=== PATIENT | male | born 1980 | race American Indian/Alaskan Native ===

== ENCOUNTER 2017-03-11 23:36 | Emergency (ER) | payer SELFPAY ==
[2017-03-12] MEDS ORDERED: NACL 0.9% 1000 ML 1,000 ML IV ONE (00:01)
[2017-03-12 00:45] LABS: Basophils % (Auto) 0.5 % (0.0-1.8); Eosinophils % (Auto) 0.8 % (0.0-4.3); Hematocrit 42.5 % (35.5-45.6); Mean Corpuscular HGB Conc 33 % (32-34); Mean Corpuscular Hemoglobin 29 pg (28-32); Mean Corpuscular Volume 89 fl (84-94); Platelet Count 207 K/mm3 (140-440); Red Blood Count 4.77 M/mm3 (3.65-5.03); Red Cell Distribution Width 14.3 % (13.2-15.2); White Blood Count 8.8 K/mm3 (4.5-11.0)
[2017-03-12 00:58] LABS: BUN/Creatinine Ratio 21.11; Calcium 8.6 mg/dL (8.4-10.2); Chloride 95.2 mmol/L (98-107); Potassium 4.3 mmol/L (3.6-5.0)
[2017-03-12 01:42] LABS: Bilirubin,Urine NEG (Negative); Blood,Urine SM (Negative); Ketones,Urine NEG (Negative); Leukocyte Esterase,Urine NEG (Negative); Nitrite,Urine NEG (Negative); Urobilinogen,Urine < 2.0 mg/dL (<2.0)
[2017-03-12] MEDS ORDERED: NACL 0.9% 1000 ML 2,000 ML IV ONE (01:42)
[2017-03-12] MEDS ORDERED: BENTYL IM ONE (01:50)
[2017-03-12] MEDS ORDERED: PEPCID PO ONE (01:50)
[2017-03-12] MEDS ORDERED: ALUM-MAG HYDROX-SIMETH 200-200-20MG/5ML PO ONE (01:50)
[2017-03-12] MEDS ORDERED: CARAFATE PO ONE (01:50)
--- NOTE | 2017-03-12 01:52 | Emergency Department Report ---
ED General Adult HPI - General Chief complaint: Hyperglycemia Stated complaint: HIGH BLOOD PRESSURE Time Seen by Provider: 03/12/17 01:42 Source: patient, RN notes reviewed, old records reviewed Mode of arrival: Ambulatory Limitations: No Limitations - History of Present Illness Initial comments: This is a 36-year-old male. He is previously unknown to me. He is a past medical history of diabetes and hypertension. He is brought to the hospital by EMS for hyperglycemia. The patient reports his blood sugar was 564, and he gave himself 40 units of 70/30 insulin at home. He reports that he thinks his insulin was not working, because it was hot and warm. Patient denies dietary indiscretions. He denies headache, neck pain, abdominal pain, severe shortness of breath, testicular pain, irritative and obstructive urinary symptoms. He denies dietary indiscretions. On review of systems, the patient mid to central chest pressure. The pressure did not radiate to the back, arms or neck. There is no vomiting or diaphoresis. There is chronic shortness of breath, which is not new, worsening or different. There is no leg pain or leg swelling. No recent trips greater than 4 hours. No recent hospital admissions. The chest pressure has been intermittent for the past 3 days. No recent aspirin use. No recent cocaine use. -: Gradual Location: chest Severity scale (0 -10): 0 Quality: aching Consistency: intermittent Improves with: none Worsens with: none Associated Symptoms: chest pain - Related Data Home Medications Medication Instructions Recorded Confirmed Last Taken amLODIPine 5 mg PO DAILY 08/23/16 03/12/17 08/22/16 Previous Rx's Medication Instructions Recorded Last Taken Type Ibuprofen [Motrin 800 MG tab] 800 mg PO Q8HR PRN #20 tablet 08/23/16 Unknown Rx Allergies Allergy/AdvReac Type Severity Reaction Status Date / Time No Known Allergies Allergy Verified 08/24/14 19:05 ED Review of Systems ROS: Stated complaint: HIGH BLOOD PRESSURE Other details as noted in HPI Constitutional: denies: fever Eyes: denies: vision change ENT: denies: epistaxis Respiratory: denies: cough Cardiovascular: chest pain Gastrointestinal: denies: abdominal pain, nausea, vomiting Genitourinary: denies: dysuria Musculoskeletal: denies: back pain Skin: denies: lesions Neurological: weakness ED Past Medical Hx - Past Medical History Previous Medical History?: Yes Hx Hypertension: Yes Hx Diabetes: Yes - Surgical History Past Surgical History?: No - Social History Smoking Status: Current Every Day Smoker Substance Use Type: Prescribed - Medications Home Medications: Home Medications Medication Instructions Recorded Confirmed Last Taken Type Ibuprofen [Motrin 800 MG tab] 800 mg PO Q8HR PRN #20 tablet 08/23/16 03/12/17 Unknown Rx amLODIPine 5 mg PO DAILY 08/23/16 03/12/17 08/22/16 History ED Physical Exam - General Limitations: No Limitations General appearance: alert, in no apparent distress - Head Head exam: Present: atraumatic, normocephalic - Eye Eye exam: Present: normal appearance, EOMI. Absent: nystagmus - ENT ENT exam: Present: normal exam, normal orophraynx, mucous membranes moist, normal external ear exam - Neck Neck exam: Present: normal inspection, full ROM. Absent: tenderness, meningismus - Respiratory Respiratory exam: Present: normal lung sounds bilaterally. Absent: respiratory distress, wheezes, rales, rhonchi, stridor, chest wall tenderness, accessory muscle use, decreased breath sounds, prolonged expiratory - Cardiovascular Cardiovascular Exam: Present: regular rate, normal rhythm, normal heart sounds. Absent: bradycardia, tachycardia, irregular rhythm, systolic murmur, diastolic murmur, rubs, gallop - GI/Abdominal GI/Abdominal exam: Present: soft, normal bowel sounds. Absent: distended, tenderness, guarding, rebound, rigid, pulsatile mass - Rectal Rectal exam: Present: deferred - Extremities Exam Extremities exam: Present: normal inspection, full ROM, normal capillary refill. Absent: tenderness, pedal edema, joint swelling, calf tenderness - Back Exam Back exam: Present: normal inspection, full ROM. Absent: tenderness, CVA tenderness (R), CVA tenderness (L), muscle spasm, paraspinal tenderness, vertebral tenderness - Neurological Exam Neurological exam: Present: alert, oriented X3, normal gait, other (Extraocular movements intact. Tongue midline. No facial droop. Facial sensation intact to light touch in the V1, V2, V3 distribution bilaterally. 5 and 5 strength in 4 extremities.. Sensation is intact to light touch in 4 extremities.). Absent : motor sensory deficit - Psychiatric Psychiatric exam: Present: normal affect, normal mood - Skin Skin exam: Present: warm, dry, intact, normal color. Absent: rash ED Course Vital Signs 03/11/17 03/11/17 03/11/17 23:37 23:40 23:50 Temperature 98.3 F Pulse Rate 82 72 Respiratory 15 17 Rate Blood Pressure 152/99 131/86 Blood Pressure 152/99 [Right] O2 Sat by Pulse 97 98 97 Oximetry 03/11/17 03/11/17 03/12/17 23:52 23:56 00:00 Temperature Pulse Rate 74 88 77 Respiratory 18 18 Rate Blood Pressure 131/86 131/86 Blood Pressure [Right] O2 Sat by Pulse 97 98 Oximetry 03/12/17 03/12/17 03/12/17 00:10 00:20 00:30 Temperature Pulse Rate 63 78 66 Respiratory 18 17 17 Rate Blood Pressure 142/94 134/94 141/89 Blood Pressure [Right] O2 Sat by Pulse 98 97 97 Oximetry 03/12/17 03/12/17 03/12/17 00:40 00:50 01:00 Temperature Pulse Rate 71 54 L 63 Respiratory 18 16 14 Rate Blood Pressure 141/89 143/92 138/92 Blood Pressure [Right] O2 Sat by Pulse 99 99 98 Oximetry 03/12/17 03/12/17 03/12/17 01:06 01:10 01:15 Temperature Pulse Rate 65 68 Respiratory 20 16 18 Rate Blood Pressure 138/92 Blood Pressure 138/92 [Right] O2 Sat by Pulse 99 99 Oximetry 03/12/17 03/12/17 03/12/17 01:20 01:30 01:40 Temperature Pulse Rate 59 L 57 L 69 Respiratory 15 15 12 Rate Blood Pressure 138/81 150/92 150/92 Blood Pressure [Right] O2 Sat by Pulse 99 98 100 Oximetry 03/12/17 03/12/17 03/12/17 01:50 02:00 02:10 Temperature Pulse Rate 57 L 46 L 49 L Respiratory 13 17 16 Rate Blood Pressure 143/86 143/86 124/66 Blood Pressure [Right] O2 Sat by Pulse 99 98 97 Oximetry 03/12/17 03/12/17 03/12/17 02:20 02:30 03:00 Temperature Pulse Rate 53 L 58 L 47 L Respiratory 15 11 L 16 Rate Blood Pressure 136/85 136/85 120/76 Blood Pressure [Right] O2 Sat by Pulse 98 98 98 Oximetry 03/12/17 03:30 Temperature Pulse Rate 53 L Respiratory 11 L Rate Blood Pressure 129/83 Blood Pressure [Right] O2 Sat by Pulse 97 Oximetry ED Medical Decision Making - Lab Data Result diagrams: 03/12/17 00:11 03/12/17 04:24 Vital Signs 03/11/17 03/11/17 03/11/17 23:37 23:40 23:50 Temperature 98.3 F Pulse Rate 82 72 Respiratory 15 17 Rate Blood Pressure 152/99 131/86 Blood Pressure 152/99 [Right] O2 Sat by Pulse 97 98 97 Oximetry 03/11/17 03/11/17 03/12/17 23:52 23:56 00:00 Temperature Pulse Rate 74 88 77 Respiratory 18 18 Rate Blood Pressure 131/86 131/86 Blood Pressure [Right] O2 Sat by Pulse 97 98 Oximetry 03/12/17 03/12/17 03/12/17 00:10 00:20 00:30 Temperature Pulse Rate 63 78 66 Respiratory 18 17 17 Rate Blood Pressure 142/94 134/94 141/89 Blood Pressure [Right] O2 Sat by Pulse 98 97 97 Oximetry 03/12/17 03/12/17 03/12/17 00:40 00:50 01:00 Temperature Pulse Rate 71 54 L 63 Respiratory 18 16 14 Rate Blood Pressure 141/89 143/92 138/92 Blood Pressure [Right] O2 Sat by Pulse 99 99 98 Oximetry 03/12/17 03/12/17 03/12/17 01:06 01:10 01:15 Temperature Pulse Rate 65 68 Respiratory 20 16 18 Rate Blood Pressure 138/92 Blood Pressure 138/92 [Right] O2 Sat by Pulse 99 99 Oximetry 03/12/17 03/12/17 03/12/17 01:20 01:30 01:40 Temperature Pulse Rate 59 L 57 L 69 Respiratory 15 15 12 Rate Blood Pressure 138/81 150/92 150/92 Blood Pressure [Right] O2 Sat by Pulse 99 98 100 Oximetry 03/12/17 03/12/17 03/12/17 01:50 02:00 02:10 Temperature Pulse Rate 57 L 46 L 49 L Respiratory 13 17 16 Rate Blood Pressure 143/86 143/86 124/66 Blood Pressure [Right] O2 Sat by Pulse 99 98 97 Oximetry 03/12/17 03/12/17 03/12/17 02:20 02:30 03:00 Temperature Pulse Rate 53 L 58 L 47 L Respiratory 15 11 L 16 Rate Blood Pressure 136/85 136/85 120/76 Blood Pressure [Right] O2 Sat by Pulse 98 98 98 Oximetry 03/12/17 03:30 Temperature Pulse Rate 53 L Respiratory 11 L Rate Blood Pressure 129/83 Blood Pressure [Right] O2 Sat by Pulse 97 Oximetry Lab Results 03/11/17 03/12/17 03/12/17 Range/Units 23:45 00:11 00:11 WBC 8.8 (4.5-11.0) K/mm3 RBC 4.77 (3.65-5.03) M/mm3 Hgb 14.0 (11.8-15.2) gm/dl Hct 42.5 (35.5-45.6) % MCV 89 (84-94) fl MCH 29 (28-32) pg MCHC 33 (32-34) % RDW 14.3 (13.2-15.2) % Plt Count 207 (140-440) K/mm3 Lymph % (Auto) 24.8 (13.4-35.0) % [place] % (Auto) 5.4 (0.0-7.3) % Eos % (Auto) 0.8 (0.0-4.3) % Baso % (Auto) 0.5 (0.0-1.8) % Lymph # 2.2 (1.2-5.4) K/mm3 [place] # 0.5 (0.0-0.8) K/mm3 Eos # 0.1 (0.0-0.4) K/mm3 Baso # 0.0 (0.0-0.1) K/mm3 Seg Neutrophils % 68.5 (40.0-70.0) % Seg Neutrophils # 6.0 (1.8-7.7) K/mm3 VBG pH (7.320-7.420) Sodium 129 L (137-145) mmol/L Potassium 4.3 (3.6-5.0) mmol/L Chloride 95.2 L (98-107) mmol/L Carbon Dioxide 21 L (22-30) mmol/L Anion Gap 17 mmol/L BUN 38 H (9-20) mg/dL Creatinine 1.8 H (0.8-1.5) mg/dL Estimated GFR 52 ml/min BUN/Creatinine Ratio 21.11 % Glucose 594 H* (75-100) mg/dL POC Glucose 471 H (70-105) Calcium 8.6 (8.4-10.2) mg/dL Magnesium (1.7-2.3) mg/dL Troponin T (0.00-0.029) ng/mL Urine Color (Yellow) Urine Turbidity (Clear) Urine pH (5.0-7.0) Ur Specific [place] (1.003-1.030) Urine Protein (Negative) mg/dL Urine Glucose (UA) (Negative) mg/dL Urine Ketones (Negative) mg/dL Urine Blood (Negative) Urine Nitrite (Negative) Urine Bilirubin (Negative) Urine Urobilinogen (<2.0) mg/dL Ur Leukocyte Esterase (Negative) Urine WBC (Auto) (0.0-6.0) /HPF Urine RBC (Auto) (0.0-6.0) /HPF 03/12/17 03/12/17 03/12/17 Range/Units 00:11 00:11 01:07 WBC (4.5-11.0) K/mm3 RBC (3.65-5.03) M/mm3 Hgb (11.8-15.2) gm/dl Hct (35.5-45.6) % MCV (84-94) fl MCH (28-32) pg MCHC (32-34) % RDW (13.2-15.2) % Plt Count (140-440) K/mm3 Lymph % (Auto) (13.4-35.0) % [place] % (Auto) (0.0-7.3) % Eos % (Auto) (0.0-4.3) % Baso % (Auto) (0.0-1.8) % Lymph # (1.2-5.4) K/mm3 [place] # (0.0-0.8) K/mm3 Eos # (0.0-0.4) K/mm3 Baso # (0.0-0.1) K/mm3 Seg Neutrophils % (40.0-70.0) % Seg Neutrophils # (1.8-7.7) K/mm3 VBG pH 7.392 (7.320-7.420) Sodium (137-145) mmol/L Potassium (3.6-5.0) mmol/L Chloride (98-107) mmol/L Carbon Dioxide (22-30) mmol/L Anion Gap mmol/L BUN (9-20) mg/dL Creatinine (0.8-1.5) mg/dL Estimated GFR ml/min BUN/Creatinine Ratio % Glucose (75-100) mg/dL POC Glucose (70-105) Calcium (8.4-10.2) mg/dL Magnesium 2.10 (1.7-2.3) mg/dL Troponin T (0.00-0.029) ng/mL Urine Color Straw (Yellow) Urine Turbidity Clear (Clear) Urine pH 5.0 (5.0-7.0) Ur Specific [place] 1.022 (1.003-1.030) Urine Protein 100 mg/dl (Negative) mg/dL Urine Glucose (UA) >=500 (Negative) mg/dL Urine Ketones Neg (Negative) mg/dL Urine Blood Sm (Negative) Urine Nitrite Neg (Negative) Urine Bilirubin Neg (Negative) Urine Urobilinogen < 2.0 (<2.0) mg/dL Ur Leukocyte Esterase Neg (Negative) Urine WBC (Auto) 1.0 (0.0-6.0) /HPF Urine RBC (Auto) 4.0 (0.0-6.0) /HPF 03/12/17 03/12/17 03/12/17 Range/Units 01:10 02:38 04:24 WBC (4.5-11.0) K/mm3 RBC (3.65-5.03) M/mm3 Hgb (11.8-15.2) gm/dl Hct (35.5-45.6) % MCV (84-94) fl MCH (28-32) pg MCHC (32-34) % RDW (13.2-15.2) % Plt Count (140-440) K/mm3 Lymph % (Auto) (13.4-35.0) % [place] % (Auto) (0.0-7.3) % Eos % (Auto) (0.0-4.3) % Baso % (Auto) (0.0-1.8) % Lymph # (1.2-5.4) K/mm3 [place] # (0.0-0.8) K/mm3 Eos # (0.0-0.4) K/mm3 Baso # (0.0-0.1) K/mm3 Seg Neutrophils % (40.0-70.0) % Seg Neutrophils # (1.8-7.7) K/mm3 VBG pH (7.320-7.420) Sodium 138 D (137-145) mmol/L Potassium 3.7 (3.6-5.0) mmol/L Chloride 105.4 (98-107) mmol/L Carbon Dioxide 20 L (22-30) mmol/L Anion Gap 16 mmol/L BUN 34 H (9-20) mg/dL Creatinine 1.6 H (0.8-1.5) mg/dL Estimated GFR 59 ml/min BUN/Creatinine Ratio 21.25 % Glucose 172 H (75-100) mg/dL POC Glucose 474 H 420 H (70-105) Calcium 8.5 (8.4-10.2) mg/dL Magnesium (1.7-2.3) mg/dL Troponin T < 0.010 (0.00-0.029) ng/mL Urine Color (Yellow) Urine Turbidity (Clear) Urine pH (5.0-7.0) Ur Specific [place] (1.003-1.030) Urine Protein (Negative) mg/dL Urine Glucose (UA) (Negative) mg/dL Urine Ketones (Negative) mg/dL Urine Blood (Negative) Urine Nitrite (Negative) Urine Bilirubin (Negative) Urine Urobilinogen (<2.0) mg/dL Ur Leukocyte Esterase (Negative) Urine WBC (Auto) (0.0-6.0) /HPF Urine RBC (Auto) (0.0-6.0) /HPF 03/12/17 Range/Units 04:24 WBC (4.5-11.0) K/mm3 RBC (3.65-5.03) M/mm3 Hgb (11.8-15.2) gm/dl Hct (35.5-45.6) % MCV (84-94) fl MCH (28-32) pg MCHC (32-34) % RDW (13.2-15.2) % Plt Count (140-440) K/mm3 Lymph % (Auto) (13.4-35.0) % [place] % (Auto) (0.0-7.3) % Eos % (Auto) (0.0-4.3) % Baso % (Auto) (0.0-1.8) % Lymph # (1.2-5.4) K/mm3 [place] # (0.0-0.8) K/mm3 Eos # (0.0-0.4) K/mm3 Baso # (0.0-0.1) K/mm3 Seg Neutrophils % (40.0-70.0) % Seg Neutrophils # (1.8-7.7) K/mm3 VBG pH (7.320-7.420) Sodium (137-145) mmol/L Potassium (3.6-5.0) mmol/L Chloride (98-107) mmol/L Carbon Dioxide (22-30) mmol/L Anion Gap mmol/L BUN (9-20) mg/dL Creatinine (0.8-1.5) mg/dL Estimated GFR ml/min BUN/Creatinine Ratio % Glucose (75-100) mg/dL POC Glucose 158 H (70-105) Calcium (8.4-10.2) mg/dL Magnesium (1.7-2.3) mg/dL Troponin T (0.00-0.029) ng/mL Urine Color (Yellow) Urine Turbidity (Clear) Urine pH (5.0-7.0) Ur Specific [place] (1.003-1.030) Urine Protein (Negative) mg/dL Urine Glucose (UA) (Negative) mg/dL Urine Ketones (Negative) mg/dL Urine Blood (Negative) Urine Nitrite (Negative) Urine Bilirubin (Negative) Urine Urobilinogen (<2.0) mg/dL Ur Leukocyte Esterase (Negative) Urine WBC (Auto) (0.0-6.0) /HPF Urine RBC (Auto) (0.0-6.0) /HPF - EKG Data -: EKG Interpreted by Pa EKG shows normal: sinus rhythm - EKG Data 03/12/17 05:30 EKG #1 demonstrates normal bradycardia, 54 bpm, normal intervals, normal axis, not morphologically consistent with STEMI, this is unchanged when compared to prior EKG from 201303/12/17 05:40 EKG #2 demonstrates sinus bradycardia, 43 beats per minute, normal intervals, normal axis, not morphologically consistent with STEMI. - Radiology Data Radiology results: report reviewed, image reviewed X-ray of the chest is negative for acute disease - Medical Decision Making Differential diagnosis: Hyperglycemia, diabetic ketoacidosis, hyperosmolar state , chronic renal insufficiency, GERD, reflux, anxiety, pneumonia, acute coronary syndrome Assessment and plan: 36-year-old male with a primary complaint of hyperglycemia. He has chronic renal insufficiency; this has been present since July 2016. Laboratory studies were not consistent with anion gap acidosis, chest pain atypical, present for 3 days. Low risk by NIKO score, low risk by heart score, low risk by well's criteria, perc negative. Chest discomfort present for 3 days, therefore as per the [employer] clinical policy, myocardial infarction may be excluded with 1 set of troponins. The patient was observed in the ER for a prolonged period of time, he felt improved after symptomatic and supportive care, his renal insufficiency improved with IV fluids, and his hyperglycemia improved as well. EKG was unchanged 2, and unchanged from his prior EKG from 2013. The patient is suitable to follow up with an outpatient primary care doctor and flat drier. He will be discharged at this time. Return precautions are reviewed. X-ray not consistent with pneumonia. Critical care attestation.: If time is entered above; I have spent that time in minutes in the direct care of this critically ill patient, excluding procedure time. ED Disposition Clinical Impression: Hyperglycemia, Chest pressure, Renal insufficiency Disposition: DC-01 TO HOME OR SELFCARE Is pt being admited?: No Does the pt Need Aspirin: No Condition: Stable Instructions: Chronic Kidney Disease (ED), Diabetic Hyperglycemia (ED) Additional Instructions: Continue current outpatient medications. Follow up with your primary care doctor or flat drier within the next week to 10 days. Please note that laboratory studies indicated decreased renal function, and blood pressure was elevated. It is important to follow-up for these, as if they are untreated, these conditions can result in , disability, heart attack paralysis, loss of quality of life. Avoid consumption of Naprosyn, Motrin, ibuprofen, Aleve. Return to the ER right away with new pain, worsened pain, migration of pain, fevers, chills, chest pain, shortness of breath, confusion, inability to tolerate liquid feeds. Referrals: PRIMARY CARE, [Primary Care Provider] - 3-5 Days CELESTE SOLORIO MD [Staff Physician] - 3-5 Days BEV PARIKH MD [Staff Physician] - 3-5 Days MARIA ANTONIA GOODE MD [Staff Physician] - 3-5 Days
--- NOTE | 2017-03-12 02:32 | XRay Report ---
FINAL REPORT PROCEDURE: XR CHEST 1V AP TECHNIQUE: Chest radiograph anteroposterior view. CPT 76454 HISTORY: cp COMPARISON: No prior studies are available for comparison. FINDINGS: Heart: Normal. Mediastinum/Vessels: Normal. Lungs/Pleural space: Normal. Bony thorax: No acute osseous abnormality. Life support devices: None. IMPRESSION: No acute cardiopulmonary abnormality.
[2017-03-12 04:57] LABS: Anion Gap 16 mmol/L; BUN/Creatinine Ratio 21.25; Blood Urea Nitrogen 34 mg/dL (9-20); Calcium 8.5 mg/dL (8.4-10.2); Carbon Dioxide 20 mmol/L (22-30); Chloride 105.4 mmol/L (98-107); Glucose 172 mg/dL (75-100); Potassium 3.7 mmol/L (3.6-5.0); Sodium 138 mmol/L (137-145)
[2017-03-12 05:43] VITALS: BP 127/82
== END 2017-03-12 05:43 | disposition home or self-care (01) ==
LOC: ED 23:36
DX: E11.65 Type 2 diabetes mellitus with hyperglycemia (principal); N28.9 Disorder of kidney and ureter, unspecified; I10 Essential (primary) hypertension; J45.909 Unspecified asthma, uncomplicated
CPT/HCPCS: 36415; 71010; 80048; 81001; 82805; 82962; 83735; 84484; 85025; 93005; 93010; 96361; 96372; 96374; 99285; J0500; J7030; J1815

== ENCOUNTER 2019-03-04 15:34 | Emergency (ER) | payer SELFPAY ==
[2019-03-04 16:33] VITALS: BP 169/115
--- NOTE | 2019-03-04 16:33 | Event Note ---
ED Screening Note ED Screening Note: pt states he has a rash to the right side of his trunk and back states it began 5 days ago states he has itching and pain PMHx DM no allergies to meds This initial assessment/diagnostic orders/clinical plan/treatment(s) is/are subject to change based on patients health status, clinical progression and re- assessment by fellow clinical providers in the ED. Further treatment and workup at subsequent clinical providers discretion. Patient/guardian urged not to elope from the ED as their condition may be serious if not clinically assessed and managed. Initial orders include:
--- NOTE | 2019-03-04 16:36 | Emergency Department Report ---
- General Chief complaint: Skin Rash Stated complaint: ALLERGIC REACTION Time Seen by Provider: 03/04/19 16:29 Source: patient Mode of arrival: Ambulatory Limitations: No Limitations - History of Present Illness Initial comments: pt states he has a rash to the right side of his trunk and back states it began 5 days ago. the patient states he has itching and pain. he has never had it before. PMHx DM, no allergies to meds. - Related Data Home Medications Medication Instructions Recorded Confirmed Last Taken amLODIPine 5 mg PO DAILY 08/23/16 03/12/17 08/22/16 Previous Rx's Medication Instructions Recorded Last Taken Type Acetaminophen/Codeine [Tylenol 1 tab PO Q6H PRN #12 tab 03/04/19 Unknown Rx /Codeine # 3 tab] Acyclovir [Zovirax Tab] 800 mg PO 5XD 7 Days #35 tablet 03/04/19 Unknown Rx Ibuprofen [Motrin 800 MG tab] 800 mg PO Q8HR PRN #20 tablet 03/04/19 Unknown Rx Allergies Allergy/AdvReac Type Severity Reaction Status Date / Time No Known Allergies Allergy Verified 03/04/19 15:38 Abscess Boil HPI - HPI Chief Complaint: Skin Rash Stated Complaint: ALLERGIC REACTION Time Seen by Provider: 03/04/19 16:29 Home Medications: Home Medications Medication Instructions Recorded Confirmed Last Taken amLODIPine 5 mg PO DAILY 08/23/16 03/12/17 08/22/16 Previous Rx's Medication Instructions Recorded Last Taken Type Acetaminophen/Codeine [Tylenol 1 tab PO Q6H PRN #12 tab 03/04/19 Unknown Rx /Codeine # 3 tab] Acyclovir [Zovirax Tab] 800 mg PO 5XD 7 Days #35 tablet 03/04/19 Unknown Rx Ibuprofen [Motrin 800 MG tab] 800 mg PO Q8HR PRN #20 tablet 03/04/19 Unknown Rx Allergies/Adverse Reactions: Allergies Allergy/AdvReac Type Severity Reaction Status Date / Time No Known Allergies Allergy Verified 03/04/19 15:38 ED Review of Systems ROS: Stated complaint: ALLERGIC REACTION Other details as noted in HPI Comment: All other systems reviewed and negative ED Past Medical Hx - Past Medical History Hx Hypertension: Yes Hx Diabetes: Yes - Surgical History Past Surgical History?: No - Social History Smoking Status: Current Every Day Smoker Substance Use Type: None - Medications Home Medications: Home Medications Medication Instructions Recorded Confirmed Last Taken Type amLODIPine 5 mg PO DAILY 08/23/16 03/12/17 08/22/16 History Acetaminophen/Codeine [Tylenol 1 tab PO Q6H PRN #12 tab 03/04/19 Unknown Rx /Codeine # 3 tab] Acyclovir [Zovirax Tab] 800 mg PO 5XD 7 Days #35 tablet 03/04/19 Unknown Rx Ibuprofen [Motrin 800 MG tab] 800 mg PO Q8HR PRN #20 tablet 03/04/19 Unknown Rx ED Physical Exam - General Limitations: No Limitations General appearance: alert, in no apparent distress - Head Head exam: Present: atraumatic, normocephalic - Eye Eye exam: Present: normal appearance, PERRL - ENT ENT exam: Present: mucous membranes moist - Neurological Exam Neurological exam: Present: alert, oriented X3 - Psychiatric Psychiatric exam: Present: normal affect, normal mood - Skin Skin exam: Present: warm, dry, other (small areas of blistering over the right anterior and posterior ribs in a dermatomal distribution) ED Course Vital Signs 03/04/19 03/04/19 16:30 16:31 Temperature 98.5 F 98.5 F Pulse Rate 118 H 118 H Respiratory 16 Rate Blood Pressure 169/115 O2 Sat by Pulse 99 Oximetry ED Medical Decision Making - Medical Decision Making pt states he has a rash to the right side of his trunk and back states it began 5 days ago. the patient states he has itching and pain. he has never had it before. PMHx DM, no allergies to meds. examination consistent with shingles. pt given acyclovir and pain medication. advised pt to please take medication as prescribed. do not drive or operate heavy machinery while taking pain medica tion. may use benadryl over the counter for itching. please follow up with a primary care doctor in the next 2-3 days. it is very important you follow up with a primary care doctor to discuss the shingles vaccine and the discomfort you could have over the next few months. return to the emergency room for any new or worsening symptoms. also discussed with pt the elevation in his blood pressure during todays ED visit and advised him to follow up with a PCP for further evaluation and management and to keep a BP log. - Differential Diagnosis shingles, allergic rxn, contact derm, irritant derm Critical care attestation.: If time is entered above; I have spent that time in minutes in the direct care of this critically ill patient, excluding procedure time. ED Disposition Clinical Impression: Elevated blood pressure reading Shingles Qualifiers: Herpes zoster complications: without complications Qualified Code(s): B02.9 - Zoster without complications Disposition: DC-01 TO HOME OR SELFCARE Is pt being admited?: No Does the pt Need Aspirin: No Condition: Stable Instructions: Herpes Zoster (ED) Additional Instructions: please take medication as prescribed. do not drive or operate heavy machinery while taking pain medication. may use benadryl over the counter for itching. please follow up with a primary care doctor in the next 2-3 days. it is very important you follow up with a primary care doctor to discuss the shingles vaccine and the discomfort you could have over the next few months. return to the emergency room for any new or worsening symptoms. Prescriptions: Ibuprofen [Motrin 800 MG tab] 800 mg PO Q8HR PRN #20 tablet PRN Reason: Pain Acetaminophen/Codeine [Tylenol /Codeine # 3 tab] 1 tab PO Q6H PRN #12 tab PRN Reason: Pain , Severe (7-10) Acyclovir [Zovirax Tab] 800 mg PO 5XD 7 Days #35 tablet Referrals: LEAH MCCRARY MD [Primary Care Provider] - 3-5 Days Time of Disposition: 16:34 Print Language: JAPANESE
== END 2019-03-04 17:13 | disposition home or self-care (01) ==
LOC: ED 15:34
DX: I10 Essential (primary) hypertension (principal); E11.9 Type 2 diabetes mellitus without complications; F17.200 Nicotine dependence, unspecified, uncomplicated; B02.9 Zoster without complications
CPT/HCPCS: 99282

== ENCOUNTER 2019-09-02 14:14 | Inpatient (IN) | payer OTHER ==
--- NOTE | 2019-09-02 16:04 | Event Note ---
ED Screening Note Date of service: 09/02/19 Time: 16:00 ED Screening Note: 38 y/o male comes in pain extremities. Has not taken anything for pain today. . Last dose yesterday evening of Aleve. Has not been taking anything for his blood pressure and has not followed up with a PCP. Patient reports that he was hospitalized for elevated blood sugar. This initial assessment/diagnostic orders/clinical plan/treatment(s) is/are subject to change based on patients health status, clinical progression and re- assessment by fellow clinical providers in the ED. Further treatment and workup at subsequent clinical providers discretion. Patient/guardian urged not to elope from the ED as their condition may be serious if not clinically assessed and managed. Initial orders include:
[2019-09-02] MEDS ORDERED: hydrALAZINE 20 MG/1 ML INJ IV ONE ×3 (16:38→22:08)
[2019-09-02 16:39] LABS: Basophils # (Auto) 0.1 K/mm3 (0.0-0.1); Basophils % (Auto) 0.8 % (0.0-1.8); Eosinophils # (Auto) 0.3 K/mm3 (0.0-0.4); Eosinophils % (Auto) 2.6 % (0.0-4.3); Hematocrit 38.8 % (35.5-45.6); Hemoglobin 12.6 gm/dl (11.8-15.2); Lymphocytes # (Auto) 2.8 K/mm3 (1.2-5.4); Lymphocytes % (Auto) 24.1 % (13.4-35.0); Mean Corpuscular HGB Conc 32 % (32-34); Mean Corpuscular Volume 90 fl (84-94); Monocytes # (Auto) 0.5 K/mm3 (0.0-0.8); Monocytes % (Auto) 4.6 % (0.0-7.3); Platelet Count 357 K/mm3 (140-440); Red Blood Count 4.34 M/mm3 (3.65-5.03); Red Cell Distribution Width 15.1 % (13.2-15.2)
[2019-09-02] MEDS ORDERED: oxyCODONE /ACETAMINOPHEN 5-325MG TAB PO ONE (16:42)
[2019-09-02 17:05] LABS: Albumin 3.7 g/dL (3.9-5); Calcium 9.2 mg/dL (8.4-10.2)
--- NOTE | 2019-09-02 17:10 | Emergency Department Report ---
HPI - General Chief Complaint: Extremity Injury, Lower Time Seen by Provider: 09/02/19 15:59 - HPI HPI: 38-year-old -Congolese male presents to the emergency department with a complaint of bilateral lower extremity pain. He says it is involving the entire leg but is worst at the knee. He denies any fall, trauma, injury, recent travel. Sometimes he says it is a burning sensation. He has a past nuchal history of insulin dependent diabetes and hypertension. The patient is not taking any blood pressure medications as he says that it caused his legs to swell. He does not remember the name but says it started with a "B." No primary care physician. He has not taken anything for her symptoms recently. He denies any skin color change, rash or lesions. ED Past Medical Hx - Past Medical History Hx Hypertension: Yes Hx Diabetes: Yes - Surgical History Past Surgical History?: No - Social History Smoking Status: Never Smoker Substance Use Type: None - Medications Home Medications: Home Medications Medication Instructions Recorded Confirmed Last Taken Type No Known Home Medications [No 09/02/19 09/02/19 Unknown History Reported Home Medications] ED Review of Systems ROS: Stated complaint: LEG/KNEE PAIN EXTREME Other details as noted in HPI Comment: All other systems reviewed and negative Constitutional: denies: chills, fever Eyes: denies: eye pain, vision change ENT: denies: ear pain, throat pain Respiratory: denies: cough, shortness of breath Cardiovascular: denies: chest pain, edema Gastrointestinal: denies: abdominal pain, vomiting Genitourinary: denies: dysuria, discharge Musculoskeletal: arthralgia, myalgia Skin: denies: rash, lesions Neurological: denies: headache, weakness, numbness Physical Exam - Physical Exam Vital Signs: Vital Signs 09/02/19 09/02/19 09/02/19 15:57 16:40 16:55 Temperature 98.4 F Pulse Rate 101 H 82 84 Respiratory 18 16 Rate Blood Pressure 203/117 197/116 Blood Pressure 222/121 [Left] O2 Sat by Pulse 100 95 Oximetry 09/02/19 17:03 Temperature Pulse Rate 91 H Respiratory 16 Rate Blood Pressure Blood Pressure 192/106 [Left] O2 Sat by Pulse 100 Oximetry Physical Exam: GENERAL: The patient is well-developed well-nourished. HEENT: Normocephalic. Atraumatic. Patient has moist mucous membranes. EYES: Extraocular motions are intact. NECK: Supple. Trachea is midline. CHEST/LUNGS: Clear to auscultation. There is no respiratory distress noted. HEART/CARDIOVASCULAR: Regular. There is no tachycardia. There is no murmur. ABDOMEN: Abdomen is soft, nontender. Patient has normal bowel sounds. There is no abdominal distention. SKIN:Skin is warm and dry. . NEURO: The patient is awake, alert, and oriented. The patient is cooperative. The patient has no focal neurologic deficits. Normal speech. MUSCULOSKELETAL: Patient has some tenderness to palpation along the length of bilateral lower extremities. Negative anterior and posterior drawer test and no laxity with valgus or varus stress to either knee. No obvious deformity. T here is no limitation range of motion. ED Course Vital Signs 09/02/19 09/02/19 09/02/19 15:57 16:40 16:55 Temperature 98.4 F Pulse Rate 101 H 82 84 Respiratory 18 16 Rate Blood Pressure 203/117 197/116 Blood Pressure 222/121 [Left] O2 Sat by Pulse 100 95 Oximetry 09/02/19 17:03 Temperature Pulse Rate 91 H Respiratory 16 Rate Blood Pressure Blood Pressure 192/106 [Left] O2 Sat by Pulse 100 Oximetry ED Medical Decision Making - Lab Data Result diagrams: 09/02/19 16:11 09/02/19 16:11 - Radiology Data Radiology results: report reviewed, image reviewed interpreted by me: X-ray of the bilateral femur and bilateral tib-fib do not show any acute fracture, dislocation, or any other acute process. DUPLEX DOPPLER LOWER EXTREMITY VEINS, BILATERAL INDICATION / CLINICAL INFORMATION: Bilateral lower extremity pain. TECHNIQUE: Duplex doppler imaging was performed through the veins of both lower extremities using venous compression and other maneuvers. COMPARISON: None available. FINDINGS: RIGHT COMMON FEMORAL VEIN: Negative. RIGHT FEMORAL VEIN: Negative. RIGHT POPLITEAL VEIN: Negative. RIGHT CALF VEINS: Negative. LEFT COMMON FEMORAL VEIN: Negative. LEFT FEMORAL VEIN: Negative. LEFT POPLITEAL VEIN: Negative. LEFT CALF VEINS: Negative. ADDITIONAL FINDINGS: None. IMPRESSION: 1. No sonographic evidence for DVT in either lower extremity. - Medical Decision Making This patient presents to the emergency department with a complaint of some acute on chronic bilateral lower extremity pain. The patient also presents with extremely elevated blood pressure and admits to medication noncompliance as he says it caused his legs to swell. X-rays were done of the bilateral femur and tib-fib's but did not show any acute fractures, dislocations or any acute processes. Bilateral lower cavity venous Dopplers were completed that also did not show any evidence for DVT. In working this patient up, his labs came back showing renal failure with a GFR of about 16. BUN about 70. Potassium of 5.1. Nephrology contacted and consult. Patient was given a dose of pain medication and some antihypertensive medications for his blood pressure. He came down to a more reasonable level. Patient will be admitted to hospital for further evaluation and treatment and was accepted for admission by the hospitalist, Dr. Larry. - Differential Diagnosis DVT, occult fracture, peripheral neuropathy Critical Care Time: No Critical care attestation.: If time is entered above; I have spent that time in minutes in the direct care of this critically ill patient, excluding procedure time. ED Disposition Clinical Impression: Hypertensive urgency, Bilateral leg pain Acute renal failure Qualifiers: Acute renal failure type: unspecified Qualified Code(s): N17.9 - Acute kidney failure, unspecified Disposition: DC-09 OP ADMIT IP TO THIS HOSP Is pt being admited?: Yes Condition: Fair Time of Disposition: 21:39
--- NOTE | 2019-09-02 17:32 | XRay Report ---
XR femur BILAT 2+V INDICATION / CLINICAL INFORMATION: Bilateral leg pain. COMPARISON: None available. FINDINGS: BONES/JOINT(S): No acute fracture or subluxation. No focal bone lesions. Mild DJD in both knees. No s ignificant degenerative change in the hips. SOFT TISSUES: No significant abnormality. ADDITIONAL FINDINGS: None. Signer Name: Loy Fitzpatrick MD Signed: 09/02/2019 5:28 PM Workstation Name: [id number]
--- NOTE | 2019-09-02 17:34 | XRay Report ---
BILATERAL LOWER LEGS 8 VIEWS INDICATION / CLINICAL INFORMATION: Bilateral lower leg pain for one month. COMPARISON: None available. FINDINGS: BONES / JOINT(S): There are old healed fractures of the distal right fibular metadiaphysis and the ri ght medial malleolus. I do not identify an acute fracture, dislocation or destructive lesion. There a re mild degenerative changes involving the right tibiotalar joint. The left lower leg is unremarkable . SOFT TISSUES: No significant abnormality. ADDITIONAL FINDINGS: None. Signer Name: Raul Rose MD Signed: 09/02/2019 5:30 PM Workstation Name: [id number]
--- NOTE | 2019-09-02 18:01 | Vascular Lab Report ---
DUPLEX DOPPLER LOWER EXTREMITY VEINS, BILATERAL INDICATION / CLINICAL INFORMATION: Bilateral lower extremity pain. TECHNIQUE: Duplex doppler imaging was performed through the veins of both lower extremities using venous sandy jose and other maneuvers. COMPARISON: None available. FINDINGS: RIGHT COMMON FEMORAL VEIN: Negative. RIGHT FEMORAL VEIN: Negative. RIGHT POPLITEAL VEIN: Negative. RIGHT CALF VEINS: Negative. LEFT COMMON FEMORAL VEIN: Negative. LEFT FEMORAL VEIN: Negative. LEFT POPLITEAL VEIN: Negative. LEFT CALF VEINS: Negative. ADDITIONAL FINDINGS: None. IMPRESSION: 1. No sonographic evidence for DVT in either lower extremity. Signer Name: Kevin Hawkins MD Signed: 09/02/2019 5:57 PM Workstation Name: [id number]
--- NOTE | 2019-09-02 18:56 | Consultation ---
History of Present Illness - History of Present Illness Thank you for the consultation ! My assessment and plan are as follows: Renal failure, rule out any possibility of progression of renal failure over time, patient does have underlying chronic kidney disease and his baseline creatinine was around 1.8 in 2017 At this time we'll order renal labs, ultrasonogram, imagings report will be reviewed when available If renal function fails to improve with conservative care and renal ultrasonogram is normal we may consider doing a kidney biopsy for him at some point In the meantime obtain all the basic lab, correct metabolic acidosis corrects hyperkalemia, hydration and follow-up Renal prognosis appears to be very guarded possibly poor depending on how labs look in the next 2-3 days Patient has been adequately counseled and educated regarding all the renal related issues and renal care plan was discussed with patient at length Patient was advised to make an appointment upon discharge, for follow-up in the office Renal prognosis remains guarded at this time We'll continue to follow and make recommendation from renal standpoint If you have any questions please feel free to contact me at [phone] Evert Perez M.D. [facility], [address] [place] [address] History of presenting illness 38-year-old -[place]ad[place] male who is admitted here with bilateral lower extremity pain and weakness and fatigue, patient does have history of chronic kidney disease and creatinine was 1.7 in 2017, he does use NSAIDs [id number] off and on Denies having any history of lupus hepatitis HIV, creatinine is currently at 4.8 with a BUN of 70 and potassium of 5.1 with bicarbonate of 18, Patient has known history of chronic kidney disease and even in 2017 his c reatinine was running around 1.8, He does have history of diabetes as well as hypertension, does not recall his last hemoglobin A1c Blood pressure was markedly elevated in the ER close to 220 Past medical history significant for Chronic kidney disease Hypertension Diabetes NSAID use Current allergies none Home medication, present medication reviewed Social history, family history: Reviewed Review of system, generalized weakness fatigue some complaints of lower extremity pain, weakness was worse with exertion Denies any history of hematuria proteinuria flank pain fever or chills No change in the color of urine All other review of system negative Physical examination: General: No acute distress HEENT: Oral mucosa moist no icterus, no facial swelling Neck: Supple no thyromegaly no lymphadenopathy no JVD Chest: Clear to auscultation no crackles rales or wheezes Heart: Regular rate and rhythm S1-S2 heard no S3-S4 Abdomen: Soft nontender no organomegaly no masses palpable no renal bruit no suprapubic masses no CVA tenderness Dermatology: No petechial skin rashes noted Extremity: Less than 1+ peripheral edema, dry skin Musculoskeletal: No joint effusion noted in knee and ankle area Psych: No evidence of agitation and aggression noted Neurological: Alert awake follows commands no tremors no myoclonus Back: No CVA tenderness Medications and Allergies Allergies Allergy/AdvReac Type Severity Reaction Status Date / Time No Known Allergies Allergy Verified 03/04/19 15:38 Home Medications Medication Instructions Recorded Confirmed Last Taken Type amLODIPine [Norvasc] 10 mg PO DAILY 09/03/19 09/03/19 Unknown History Exam - Vital Signs Vital signs: Vital Signs Temp Pulse Resp BP Pulse Ox 98.4 F 101 H 18 203/117 100 09/02/19 15:57 09/02/19 15:57 09/02/19 15:57 09/02/19 15:57 09/02/19 15:57 Results - Lab Results 09/03/19 05:50 09/03/19 05:50 Most recent lab results Calcium 9.2 mg/dL (8.4-10.2) 09/02/19 16:11
--- NOTE | 2019-09-02 19:00 | Event Note ---
Being admitted for renal failure ,HTN mild acidosis and hyperkalemia no emergent indications for dialysis , may have progression of renal failure over time has been taking nonsteroidal drugs in outpatient setting Has history of underlying chronic kidney disease remotely creatinine was around 1.7, not a candidate for PINA inhibitor or angiotensin receptor teri goal blood pressure 140 or less for now ideally 1:30 down the line will order workup for renal failure and follow-up
[2019-09-02 19:53] LABS: Hepatitis B Surface Antigen Non-Reactive (Negative); Hepatitis C Virus Antibody Non-Reactive (NonReactive)
--- NOTE | 2019-09-02 21:06 | Ultrasound Report ---
Retroperitoneal Ultrasound History: renal failure , . Comparison: None Procedure: Real time ultrasound was utilized to evaluate. Findings: The right kidney measures 10.0 cm and the left kidney measures 10.1cm. Both kidneys are ech ogenic consistent with medical renal disease. Renal cortical thickness is normal measuring 15 mm bila terally. No hydronephrosis or nephrolithiasis is seen. No renal masses are seen. No perinephric flui d collections are identified. No ureteral calculi are noted. The urinary bladder is unremarkable. Impression: Both kidneys are echogenic consistent with medical renal disease. Both kidneys demonstrat e normal renal size and cortical thickness. No hydronephrosis. Signer Name: Shena Wisdom MD Signed: 09/02/2019 9:02 PM Workstation Name: [id number]
[2019-09-02 21:14] LABS: Bilirubin,Urine NEG (Negative); Blood,Urine SM (Negative); Color,Urine Straw (Yellow); Urobilinogen,Urine < 2.0 mg/dL (<2.0)
[2019-09-02 21:16] LABS: Protein,Urine >500 mg/dL (Negative)
[2019-09-02 21:17] LABS: Creatinine,Urine 52.8 mg/dL (0.1-20.0)
[2019-09-02] MEDS ORDERED: MAGNESIUM HYDROXIDE (MOM) ORAL LIQD UDC PO PRN (22:12)
[2019-09-02] MEDS ORDERED: ACETAMINOPHEN 325 MG TAB PO PRN (22:12)
[2019-09-02] MEDS ORDERED: ONDANSETRON 4 MG/2 ML INJ IV PRN (22:12)
[2019-09-02] MEDS ORDERED: DEXTROSE 50% IN WATER (25GM) 50 ML SYRINGE IV PRN (22:12)
[2019-09-02] MEDS ORDERED: MORPHINE 4 MG/1 ML INJ IV ONE (22:59)
[2019-09-02] MEDS: SODIUM BICARBONATE 650 MG TAB PO SCH (23:02)
[2019-09-02] MEDS ORDERED: MORPHINE 4 MG/1 ML INJ ONE (23:03)
--- NOTE | 2019-09-03 00:24 | XRay Report ---
RIGHT FOOT 3 VIEWS INDICATION / CLINICAL INFORMATION: Right great toe pain, discoloration and wound. COMPARISON: None available. FINDINGS: BONES / JOINT(S): There are mild degenerative changes involving the interphalangeal joint of the grea t toe as well as the first metatarsophalangeal joint. There is no evidence of acute fracture, disloca tion or destructive lesion. There are old healed fractures of the distal tibia and fibula with mild d egenerative changes involving the tibiotalar joint. SOFT TISSUES: No significant abnormality. ADDITIONAL FINDINGS: None. IMPRESSION: Mild degenerative changes and old posttraumatic changes. No acute abnormality is identifi ed. Signer Name: Raul Rose MD Signed: 09/03/2019 12:19 AM Workstation Name: [id number]
[2019-09-03] MEDS ORDERED: INSULIN LISPRO 100 UNIT/ML SUB-Q ONE (02:00)
--- NOTE | 2019-09-03 02:09 | History and Physical Report ---
History of Present Illness Date of examination: 09/03/19 Date of admission: 09/02/19 21:39 Chief complaint: Leg pain History of present illness: 38-year-old male with known history of hypertension and diabetes mellitus presenting to the emergency room today complaining of bilateral lower extremity pain which has been ongoing for the past few days. He denies any fall and denies any trauma to the lower extremities. Pain is said to be more in the knees and he is also has some numbness on his feet. He admits that he has not been quite compliant with his blood pressure medications as his medications causes feet swelling. Blood pressure was quite elevated upon arrival in the emergency room he was given some IV hydralazine with significant improvement in his blood pressure. Patient has also had a right foot big toe wound which has been ongoing for several weeks but he has been nursing at home by himself. He denies any injury but indicates that he probably had a callus that got peeled off and developed into an infection. Wound has had some occasional drainage. Upon evaluation in the emergency room patient was found to have elevated BUN and creatinine was also found to be hyperglycemic. [employer] on-call has been notified by the ER physician. Past History Past Medical History: diabetes, hypertension, renal failure Past Surgical History: No surgical history Social history: no significant social history Family history: no significant family history Medications and Allergies Allergies Allergy/AdvReac Type Severity Reaction Status Date / Time No Known Allergies Allergy Verified 03/04/19 15:38 Home Medications Medication Instructions Recorded Confirmed Last Taken Type No Known Home Medications [No 09/02/19 09/02/19 Unknown History Reported Home Medications] Active Meds: Active Medications Acetaminophen (Tylenol) 650 mg PO Q4H PRN PRN Reason: Pain MILD(1-3)/Fever >100.5/FERREIRA Dextrose (D50w (25gm) Syringe) 50 ml IV Q30MIN PRN; Protocol PRN Reason: Hypoglycemia Hydralazine HCl (Apresoline) 10 mg IV Q4H PRN PRN Reason: Blood Pressure Sodium Chloride (Nacl 0.9% 1000 Ml) 1,000 mls @ 75 mls/hr IV DIRECT [facility]URAN Clindamycin HCl (Cleocin 600 Mg/50 Ml) 600 mg in 50 mls @ 100 mls/hr IV Q8HR DURAN; Protocol Insulin Human Lispro (Humalog) 0 unit SUB-Q ACHS [facility]; Protocol Magnesium Hydroxide (Milk Of Magnesia) 30 ml PO Q4H PRN PRN Reason: Constipation Morphine Sulfate (Morphine) 2 mg IV Q4H PRN PRN Reason: Pain, Moderate (4-6) Ondansetron HCl (Zofran) 4 mg IV Q8H PRN PRN Reason: Nausea And Vomiting Sodium Bicarbonate (Sodium Bicarbonate) 1,300 mg PO BID [facility] Last Admin: 09/02/19 23:02 Dose: Not Given Documented by: Sodium Chloride (Sodium Chloride Flush Syringe 10 Ml) 10 ml IV BID [facility] Sodium Chloride (Sodium Chloride Flush Syringe 10 Ml) 10 ml IV PRN PRN PRN Reason: LINE FLUSH Review of Systems Constitutional: no fever, no chills Ears, nose, mouth and throat: no headache Cardiovascular: no chest pain, no palpitations, no lightheadedness, no shortness of breath Respiratory: no cough, no congestion Gastrointestinal: no abdominal pain, no nausea, no vomiting, no diarrhea Genitourinary Male: no dysuria, no hematuria Musculoskeletal: no neck pain Neurological: no weakness, no parathesias, no numbness, no headaches, no aphasia, no double vision Exam - Constitutional Vitals: Temp Pulse Resp BP Pulse Ox 98.4 F 114 H 20 148/93 100 09/02/19 15:57 09/02/19 22:57 09/03/19 00:15 09/02/19 22:57 09/03/19 00:15 General appearance: Present: no acute distress, well-nourished - EENT Eyes: Present: EOM intact ENT: hearing intact, clear oral mucosa, dentition normal - Neck Neck: Present: supple, normal ROM - Respiratory Respiratory effort: normal Respiratory: bilateral: CTA - Cardiovascular Rhythm: regular Heart Sounds: Present: S1 & S2 - Extremities Extremities: no ischemia, pulses intact, pulses symmetrical, No edema, Full ROM, abnormal (Medial aspect of the right big toe with minimal drainage which is foul-smelling, discolored duration around the right big toe) Peripheral Pulses: within normal limits - Abdominal General gastrointestinal: Present: soft, non-tender, non-distended - Integumentary Integumentary: Present: clear, warm, dry - Psychiatric Psychiatric: appropriate mood/affect, intact judgment & insight, cooperative - Neurologic Neurologic: CNII-XII intact, moves all extremities Results - Labs CBC & Chem 7: 09/02/19 16:11 09/02/19 16:11 Labs: Abnormal lab results 09/02/19 09/02/19 09/02/19 Range/Units 14:48 16:11 16:11 WBC 11.7 H (4.5-11.0) K/mm3 Seg Neutrophils # 8.0 H (1.8-7.7) K/mm3 Potassium 5.1 H (3.6-5.0) mmol/L Chloride 108.6 H (98-107) mmol/L Carbon Dioxide 18 L (22-30) mmol/L BUN 70 H (9-20) mg/dL Creatinine 4.8 H (0.8-1.5) mg/dL Glucose 232 H (75-100) mg/dL POC Glucose 211 H (70-105) Hemoglobin A1c (4-6) % Albumin 3.7 L (3.9-5) g/dL PTH Intact (15-65) pg/mL Urine Creatinine (0.1-20.0) mg/dL Urine Total Protein (5-11.8) mg/dL 09/02/19 09/02/19 09/02/19 Range/Units 19:05 20:50 22:44 WBC (4.5-11.0) K/mm3 Seg Neutrophils # (1.8-7.7) K/mm3 Potassium (3.6-5.0) mmol/L Chloride (98-107) mmol/L Carbon Dioxide (22-30) mmol/L BUN (9-20) mg/dL Creatinine (0.8-1.5) mg/dL Glucose (75-100) mg/dL POC Glucose (70-105) Hemoglobin A1c 9.6 H (4-6) % Albumin (3.9-5) g/dL PTH Intact 158.3 H (15-65) pg/mL Urine Creatinine 52.8 H (0.1-20.0) mg/dL Urine Total Protein 359 H (5-11.8) mg/dL 09/03/19 Range/Units 01:36 WBC (4.5-11.0) K/mm3 Seg Neutrophils # (1.8-7.7) K/mm3 Potassium (3.6-5.0) mmol/L Chloride (98-107) mmol/L Carbon Dioxide (22-30) mmol/L BUN (9-20) mg/dL Creatinine (0.8-1.5) mg/dL Glucose (75-100) mg/dL POC Glucose 374 H (70-105) Hemoglobin A1c (4-6) % Albumin (3.9-5) g/dL PTH Intact (15-65) pg/mL Urine Creatinine (0.1-20.0) mg/dL Urine Total Protein (5-11.8) mg/dL Assessment and Plan - Patient Problems (1) Bilateral leg pain Current Visit: Yes Status: Acute Plan to address problem: Etiology is unclear, this may be secondary to peripheral neuropathy. However patient has been placed on analgesic medication. (2) Acute renal failure Current Visit: Yes Status: Acute Qualifiers: Acute renal failure type: unspecified Qualified Code(s): N17.9 - Acute kidney failure, unspecified Plan to address problem: We will monitor BUN and creatinine. Consult has been placed to the gift basket packer for further evaluation and recommendation. (3) Hypertensive urgency Current Visit: Yes Status: Acute Plan to address problem: Secondary to noncompliance with medication. Patient has been placed on IV hydralazine as needed. Will monitor blood pressure closely. (4) Wound of right foot Current Visit: Yes Status: Acute Plan to address problem: Patient placed on empiric IV antibiotics. We also check x-ray of the right foot. Patient may need MRI of the right foot to rule out osteomyelitis. Consult will also be placed to wound care team for evaluation and recommendation. (5) DVT prophylaxis Current Visit: Yes Status: Acute Plan to address problem: Patient placed on subcutaneous heparin. (6) Full code status Current Visit: Yes Status: Acute
[2019-09-03] MEDS: MORPHINE 2 MG/1 ML INJ IV PRN ×2 (04:02→14:46)
[2019-09-03 06:33] LABS: Basophils # (Auto) 0.1 K/mm3 (0.0-0.1); Eosinophils # (Auto) 0.2 K/mm3 (0.0-0.4); Eosinophils % (Auto) 2.3 % (0.0-4.3); Hematocrit 35.1 % (35.5-45.6); Hemoglobin 11.4 gm/dl (11.8-15.2); Lymphocytes # (Auto) 1.8 K/mm3 (1.2-5.4); Lymphocytes % (Auto) 19.6 % (13.4-35.0); Mean Corpuscular HGB Conc 32 % (32-34); Mean Corpuscular Volume 89 fl (84-94); Monocytes # (Auto) 0.4 K/mm3 (0.0-0.8); Monocytes % (Auto) 4.9 % (0.0-7.3); Platelet Count 334 K/mm3 (140-440); Red Blood Count 3.95 M/mm3 (3.65-5.03); Red Cell Distribution Width 15.2 % (13.2-15.2)
[2019-09-03 06:45] LABS: INR 0.93 (0.87-1.13)
[2019-09-03 06:46] LABS: Partial Thromboplastin Time 29.3 Sec. (24.2-36.6)
[2019-09-03] MEDS: CLINDAMYCIN 600 MG/50 mL 600 MG/50 ML BAG IV SCH ×3 (06:48→21:27)
[2019-09-03] MEDS: SODIUM CHLORIDE 0.9% 1000 ML 1,000 ML IV SCH (06:48)
[2019-09-03 06:49] LABS: Calcium 8.4 mg/dL (8.4-10.2)
[2019-09-03] MEDS: hydrALAZINE 20 MG/1 ML INJ IV PRN (06:49)
[2019-09-03] MEDS ORDERED: INSULIN REGULAR, HUMAN 100 UNITS/1 ML SUB-Q ONE (08:59)
[2019-09-03] MEDS: INSULIN LISPRO 100 UNIT/ML SUB-Q SCH ×4 (09:42→21:28)
[2019-09-03] MEDS: SODIUM BICARBONATE 650 MG TAB PO SCH ×2 (09:47→21:27)
--- NOTE | 2019-09-03 10:53 | Progress Note ---
Subjective Interval history: Patient was seen today for follow-up on multiple renal related issues Events of this hospitalization were noted Interdisciplinary notes were also reviewed Vitals intake output medications were reviewed Past medical history: Reviewed Family, social history: Reviewed Allergies: Reviewed Physical examination General: No acute distress Vitals: Reviewed HEENT: Oral mucosa moist no icterus Neck: Supple no thyromegaly nodular mass or JVD Chest: Clear to auscultation anteriorly Heart: Regular rate and rhythm S1-S2 heard no S3-S4 Abdomen: Soft nontender no suprapubic masses no organomegaly Extremity: Dry skin less than 1+ edema Psych: No evidence of any agitation and aggression noted Derm: No petechial rash Assessment and plan: Advanced renal failure likely in a patient who is 38-year-old has history of chronic kidney disease with uncontrolled hypertension tachycardia diabetes, renal function remains stable at this time? Progression, Blood pressure remains elevated requires better control and adjust medication follow-up this could be also due to worsening renal failure he was also taking nonsteroidal drugs oorly controlled diabetes hemoglobin A1c currently 9.1 Metabolic acidosis: Counseled and educated Mild hyperkalemia to monitor and follow Renal prognosis guarded, possibly very poor renal function fails to improve Renal ultrasonogram shows, bilateral echogenic kidneys, likely this is resulting from diabetic hypertensive nephropathy rule out other causes, would avoid biopsy with echogenic kidneys All renal related issues were discussed with the patient, patient does exhibit good understanding, lab results were also discussed with patient in simple French Prognosis: Guarded We'll continue to follow and make recommendation from renal standpoint Objective - Vital Signs Vital signs: Vital Signs - 12hr 09/02/19 09/03/19 09/03/19 22:57 00:15 05:48 Temperature 98.8 F Pulse Rate 114 H 97 H Respiratory 20 22 Rate Blood Pressure 148/93 174/104 O2 Sat by Pulse 100 96 Oximetry 09/03/19 09:53 Temperature Pulse Rate Respiratory Rate Blood Pressure 170/95 O2 Sat by Pulse Oximetry - Lab 09/03/19 05:50 09/03/19 05:50 Most recent lab results Calcium 8.4 mg/dL (8.4-10.2) 09/03/19 05:50 Phosphorus 4.50 mg/dL (2.5-4.5) 09/02/19 19:05 Urine Creatinine 52.8 mg/dL (0.1-20.0) H 09/02/19 20:50 Urine Sodium 72 mmol/L 09/02/19 20:50 Urine Total Protein 359 mg/dL (5-11.8) H 09/02/19 20:50 Medications & Allergies - Medications Allergies/Adverse Reactions: Allergies No Known Allergies Allergy (Verified 03/04/19 15:38) Home Medications: Home Medications Medication Instructions Recorded Confirmed Last Taken Type amLODIPine [Norvasc] 10 mg PO DAILY 09/03/19 09/03/19 Unknown History Active Medications: Generic Name Dose Route Start Last Admin Trade Name Freq PRN Reason Stop Dose Admin Acetaminophen 650 mg 09/02/19 22:12 Tylenol PO Q4H PRN Pain MILD(1-3)/Fever >100.5/FERREIRA Dextrose 50 ml 09/02/19 22:12 D50w (25gm) Syringe IV Q30MIN PRN Hypoglycemia Protocol Heparin Sodium (Porcine) 5,000 unit 09/03/19 14:00 Heparin SUB-Q Q8HR DURAN Hydralazine HCl 10 mg 09/02/19 22:21 09/03/19 06:49 Apresoline IV 10 mg Q4H PRN Administration Blood Pressure Sodium Chloride 1,000 mls @ 75 mls/hr 09/02/19 22:15 09/03/19 06:48 Nacl 0.9% 1000 Ml IV 10 mls/hr DIRECT DURAN Administration Clindamycin HCl 600 mg in 50 mls @ 100 mls/hr 09/03/19 06:00 09/03/19 06:48 Cleocin 600 Mg/50 Ml IV 100 mls/hr Q8HR [facility]URAN Administration Protocol Insulin Glargine 16 units 09/03/19 22:00 Lantus SUB-Q QHS DURAN Insulin Human Lispro 0 unit 09/03/19 07:30 09/03/19 09:42 Humalog SUB-Q 8 unit ACHS DURAN Administration Protocol Magnesium Hydroxide 30 ml 09/02/19 22:12 Milk Of Magnesia PO Q4H PRN Constipation Morphine Sulfate 2 mg 09/02/19 22:12 09/03/19 04:02 Morphine IV 2 mg Q4H PRN Administration Pain, Moderate (4-6) Ondansetron HCl 4 mg 09/02/19 22:12 Zofran IV Q8H PRN Nausea And Vomiting Sodium Bicarbonate 1,300 mg 09/02/19 22:00 09/03/19 09:47 Sodium Bicarbonate PO 1,300 mg BID DURAN Administration Sodium Chloride 10 ml 09/03/19 10:00 09/03/19 10:23 Sodium Chloride Flush Syringe 10 Ml IV Not Given BID DURAN Sodium Chloride 10 ml 09/02/19 22:12 Sodium Chloride Flush Syringe 10 Ml IV PRN PRN LINE FLUSH
[2019-09-03] MEDS: NIFEdipine XL 30 MG TAB PO SCH (11:22)
--- NOTE | 2019-09-03 11:22 | Progress Note ---
Assessment and Plan Assessment and plan: Patient is a 38-year-old male with known history of hypertension and diabetes mellitus presenting to the emergency room today complaining of bilateral lower extremity pain which has been ongoing for the past few days. He denies any fall and denies any trauma to the lower extremities. Pain is said to be more in the knees and he is also has some numbness on his feet. He admits that he has not been quite compliant with his blood pressure medications as his medications causes feet swelling. Blood pressure was quite elevated upon arrival in the emergency room he was given some IV hydralazine with significant improvement in his blood pressure. Patient has also had a right foot big toe wound which has been ongoing for several weeks but he has been nursing at home by himself. He denies any injury but indicates that he probably had a callus that got peeled off and developed into an infection. Wound has had some occasional drainage. Upon evaluation in the emergency room patient was found to have elevated BUN and creatinine was also found to be hyperglycemic. Manager Ct on-call has been notified by the ER physician. (1) Bilateral leg pain Current Visit: Yes Status: Acute Plan to address problem: Etiology is unclear, this may be secondary to peripheral neuropathy. However patient has been placed on analgesic medication. (2) Acute renal failure possible ckd Current Visit: Yes Status: Acute Qualifiers: Acute renal failure type: unspecified Qualified Code(s): N17.9 - Acute kidney failure, unspecified Plan to address problem: We will monitor BUN and creatinine. Consult has been placed to the scalder for further evaluation and recommendation. (3) Hypertensive urgency Current Visit: Yes Status: Acute Plan to address problem: Secondary to noncompliance with medication. Patient has been placed on IV hydralazine as needed. Will monitor blood pressure closely. (4) Wound of right foot Current Visit: Yes Status: Acute Plan to address problem: Patient placed on empiric IV antibiotics. xray of the foot not showing any fracture. Patient may need MRI of the right foot to rule out osteomyelitis. Consult will also be placed to wound care team for evaluation and recommendation. Advised patient of the need for podiatry evaluation outpatient will obtain wound care doctor (5) DVT prophylaxis Current Visit: Yes Status: Acute Plan to address problem: Patient placed on subcutaneous heparin. (6) Mild Hyperkalemia Current Visit: Yes Status: Acute Renal prognosis is guarded History Interval history: Patient seen and examined this morning appears lethargic but reports improvement still with pain bilateral lower extremity. Hospitalist Physical - Physical exam Narrative exam: VITAL SIGNS: Reviewed. GENERAL: The patient appears normally developed, cachetic. Vital signs as documented. HEAD: No signs of head trauma. EYES: Pupils are equal. Extraocular motions intact. EARS: Hearing grossly intact. MOUTH: Oropharynx is normal. NECK: No adenopathy, no JVD. CHEST: Chest with clear breath sounds bilaterally. No wheezes, rales, or rhonchi. CARDIAC: Regular rate and rhythm. S1 and S2, without murmurs, gallops, or rubs. VASCULAR: No Edema. Peripheral pulses normal and equal in all extremities. ABDOMEN: Soft, non tender and non distended. No rebound or guarding, and no masses palpated. Bowel Sounds normal. MUSCULOSKELETAL: Good range of motion of all major joints. Extremities without clubbing, cyanosis or edema. Darkened and swollen right great toe, no drainage noted, tender to touch NEUROLOGIC EXAM: Alert and oriented x 3 No focal sensory or strength deficits. Speech normal. Follows commands. PSYCHIATRIC: Mood normal. SKIN: detail exam as documented in skin assessment - Constitutional Vitals: Temp Pulse Resp BP Pulse Ox 98.8 F 97 H 22 170/95 96 09/03/19 05:48 09/03/19 05:48 09/03/19 05:48 09/03/19 09:53 09/03/19 05:48 General appearance: Present: no acute distress, well-nourished Results - Labs CBC & Chem 7: 09/03/19 05:50 09/03/19 05:50 Labs: Laboratory Last Values WBC 9.0 K/mm3 (4.5-11.0) 09/03/19 05:50 RBC 3.95 M/mm3 (3.65-5.03) 09/03/19 05:50 Hgb 11.4 gm/dl (11.8-15.2) L 09/03/19 05:50 Hct 35.1 % (35.5-45.6) L 09/03/19 05:50 MCV 89 fl (84-94) 09/03/19 05:50 MCH 29 pg (28-32) 09/03/19 05:50 MCHC 32 % (32-34) 09/03/19 05:50 RDW 15.2 % (13.2-15.2) 09/03/19 05:50 Plt Count 334 K/mm3 (140-440) 09/03/19 05:50 Lymph % (Auto) 19.6 % (13.4-35.0) 09/03/19 05:50 [place] % (Auto) 4.9 % (0.0-7.3) 09/03/19 05:50 Eos % (Auto) 2.3 % (0.0-4.3) 09/03/19 05:50 Baso % (Auto) 1.0 % (0.0-1.8) 09/03/19 05:50 Lymph # 1.8 K/mm3 (1.2-5.4) 09/03/19 05:50 [place] # 0.4 K/mm3 (0.0-0.8) 09/03/19 05:50 Eos # 0.2 K/mm3 (0.0-0.4) 09/03/19 05:50 Baso # 0.1 K/mm3 (0.0-0.1) 09/03/19 05:50 Seg Neutrophils % 72.2 % (40.0-70.0) H 09/03/19 05:50 Seg Neutrophils # 6.5 K/mm3 (1.8-7.7) 09/03/19 05:50 PT 12.6 Sec. (12.2-14.9) 09/03/19 05:50 INR 0.93 (0.87-1.13) 09/03/19 05:50 APTT 29.3 Sec. (24.2-36.6) 09/03/19 05:50 Sodium 133 mmol/L (137-145) L D 09/03/19 05:50 Potassium 5.1 mmol/L (3.6-5.0) H 09/03/19 05:50 Chloride 103.9 mmol/L (98-107) 09/03/19 05:50 Carbon Dioxide 15 mmol/L (22-30) L 09/03/19 05:50 Anion Gap 19 mmol/L 09/03/19 05:50 BUN 67 mg/dL (9-20) H 09/03/19 05:50 Creatinine 4.7 mg/dL (0.8-1.5) H 09/03/19 05:50 Estimated GFR 17 ml/min 09/03/19 05:50 BUN/Creatinine Ratio 14 % 09/03/19 05:50 Glucose 448 mg/dL (75-100) H 09/03/19 05:50 POC Glucose 368 (70-105) H 09/03/19 09:36 Hemoglobin A1c 9.6 % (4-6) H 09/02/19 22:44 Osmolality 315 Mosm/kg 09/02/19 19:05 Uric Acid 5.1 mg/dL (3.5-7.6) 09/02/19 19:05 Calcium 8.4 mg/dL (8.4-10.2) 09/03/19 05:50 Phosphorus 4.50 mg/dL (2.5-4.5) 09/02/19 19:05 Total Bilirubin 0.30 mg/dL (0.1-1.2) 09/02/19 16:11 AST 24 units/L (5-40) 09/02/19 16:11 ALT 31 units/L (7-56) 09/02/19 16:11 Alkaline Phosphatase 94 units/L (35-129) 09/02/19 16:11 Total Protein 6.8 g/dL (6.3-8.2) 09/02/19 16:11 Albumin 3.7 g/dL (3.9-5) L 09/02/19 16:11 Albumin/Globulin Ratio 1.2 % 09/02/19 16:11 PTH Intact 158.3 pg/mL (15-65) H 09/02/19 19:05 Urine Color Straw (Yellow) 09/02/19 20:50 Urine Turbidity Clear (Clear) 09/02/19 20:50 Urine pH 5.0 (5.0-7.0) 09/02/19 20:50 Ur Specific [place] 1.010 (1.003-1.030) 09/02/19 20:50 Urine Protein >500 mg/dL (Negative) 09/02/19 20:50 Urine Glucose (UA) >=500 mg/dL (Negative) 09/02/19 20:50 Urine Ketones Neg mg/dL (Negative) 09/02/19 20:50 Urine Blood Sm (Negative) 01/10/20 20:50 Urine Nitrite Neg (Negative) 09/02/19 20:50 Urine Bilirubin Neg (Negative) 09/02/19 20:50 Urine Urobilinogen < 2.0 mg/dL (<2.0) 09/02/19 20:50 Ur Leukocyte Esterase Neg (Negative) 09/02/19 20:50 Urine WBC (Auto) 3.0 /HPF (0.0-6.0) 09/02/19 20:50 Urine RBC (Auto) 2.0 /HPF (0.0-6.0) 09/02/19 20:50 Urine Eosinophils None seen (None Seen) 09/02/19 20:50 Urine Creatinine 52.8 mg/dL (0.1-20.0) H 09/02/19 20:50 Urine Sodium 72 mmol/L 09/02/19 20:50 Urine Total Protein 359 mg/dL (5-11.8) H 09/02/19 20:50 Hepatitis A IgM Ab Non-reactive (NonReactive) 09/02/19 19:05 Hep Bs Antigen Non-reactive (Negative) 09/02/19 19:05 Hep B Core IgM Ab Non-reactive (NonReactive) 09/02/19 19:05 Hepatitis C Antibody Non-reactive (NonReactive) 09/02/19 19:05 Active Medications - Current Medications Current Medications: Generic Name Dose Route Start Last Admin Trade Name Freq PRN Reason Stop Dose Admin Acetaminophen 650 mg 09/02/19 22:12 Tylenol PO Q4H PRN Pain MILD(1-3)/Fever >100.5/FERREIRA Dextrose 50 ml 09/02/19 22:12 D50w (25gm) Syringe IV Q30MIN PRN Hypoglycemia Protocol Heparin Sodium (Porcine) 5,000 unit 09/03/19 14:00 Heparin SUB-Q Q8HR DURAN Hydralazine HCl 10 mg 09/02/19 22:21 09/03/19 06:49 Apresoline IV 10 mg Q4H PRN Administration Blood Pressure Hydralazine HCl 25 mg 09/03/19 14:00 Apresoline PO Q8HR DURAN Sodium Chloride 1,000 mls @ 75 mls/hr 09/02/19 22:15 09/03/19 06:48 Nacl 0.9% 1000 Ml IV 10 mls/hr DIRECT DURAN Administration Clindamycin HCl 600 mg in 50 mls @ 100 mls/hr 09/03/19 06:00 09/03/19 06:48 Cleocin 600 Mg/50 Ml IV 100 mls/hr Q8HR [facility] Administration Protocol Insulin Glargine 16 units 09/03/19 22:00 Lantus SUB-Q QHS DURAN Insulin Human Lispro 0 unit 09/03/19 07:30 09/03/19 09:42 Humalog SUB-Q 8 unit ACHS [facility] Administration Protocol Magnesium Hydroxide 30 ml 09/02/19 22:12 Milk Of Magnesia PO Q4H PRN Constipation Morphine Sulfate 2 mg 09/02/19 22:12 09/03/19 04:02 Morphine IV 2 mg Q4H PRN Administration Pain, Moderate (4-6) Nifedipine 30 mg 09/03/19 11:00 Procardia Xl PO QDAY [facility] Ondansetron HCl 4 mg 09/02/19 22:12 Zofran IV Q8H PRN Nausea And Vomiting Sodium Bicarbonate 1,300 mg 09/02/19 22:00 09/03/19 09:47 Sodium Bicarbonate PO 1,300 mg BID DURAN Administration Sodium Chloride 10 ml 09/03/19 10:00 09/03/19 10:23 Sodium Chloride Flush Syringe 10 Ml IV Not Given BID DURAN Sodium Chloride 10 ml 09/02/19 22:12 Sodium Chloride Flush Syringe 10 Ml IV PRN PRN LINE FLUSH
[2019-09-03] MEDS: hydrALAZINE 25 MG TAB PO SCH ×2 (11:52→21:25)
[2019-09-03] MEDS ORDERED: amLODIPine 10 MG TAB PO SCH (12:00)
[2019-09-03] MEDS: HEPARIN 5,000 UNIT/1 ML VIAL SUB-Q SCH ×2 (14:50→21:27)
[2019-09-03] MEDS ORDERED: INSULIN GLARGINE 100 UNITS/ML SUB-Q SCH (22:00)
[2019-09-04] MEDS: hydrALAZINE 20 MG/1 ML INJ IV PRN (00:15)
[2019-09-04] MEDS: CLINDAMYCIN 600 MG/50 mL 600 MG/50 ML BAG IV SCH ×3 (05:38→22:40)
[2019-09-04] MEDS: hydrALAZINE 25 MG TAB PO SCH ×3 (05:40→22:40)
[2019-09-04] MEDS: HEPARIN 5,000 UNIT/1 ML VIAL SUB-Q SCH ×3 (05:44→22:41)
[2019-09-04] MEDS: INSULIN LISPRO 100 UNIT/ML SUB-Q SCH ×4 (08:21→22:42)
[2019-09-04] MEDS: SODIUM BICARBONATE 650 MG TAB PO SCH ×2 (10:14→22:41)
[2019-09-04] MEDS: NIFEdipine XL 30 MG TAB PO SCH (10:14)
--- NOTE | 2019-09-04 10:29 | Progress Note ---
Subjective Interval history: Patient was seen today for follow-up on multiple renal related issues Events of this hospitalization were noted Pending labs Interdisciplinary notes were also reviewed Vitals intake output medications were reviewed Past medical history: Reviewed Family, social history: Reviewed Allergies: Reviewed Physical examination General: No acute distress Vitals: Reviewed HEENT: Oral mucosa moist no icterus Neck: Supple no thyromegaly nodular mass or JVD Chest: Clear to auscultation anteriorly Heart: Regular rate and rhythm S1-S2 heard no S3-S4 Abdomen: Soft nontender no suprapubic masses no organomegaly Extremity: Dry skin less than 1+ edema Psych: No evidence of any agitation and aggression noted Derm: No petechial rash Assessment and plan: Advanced renal failure likely in a patient who is 38-year-old has history of chronic kidney disease with uncontrolled hypertension tachycardia diabetes, renal function remains stable at this time? Progression, Blood pressure remains elevated requires better control and adjust medication follow-up this could be also due to worsening renal failure he was also taking n onsteroidal drugs? FÉLIX will follow pending labs ? Osteomyelitis of the toe d/w Dr Vincent Poorly controlled diabetes hemoglobin A1c currently 9.1 Metabolic acidosis: Counseled and educated Mild hyperkalemia to monitor and follow Renal prognosis guarded, possibly very poor renal function fails to improve Renal ultrasonogram shows, bilateral echogenic kidneys, likely this is resulting from diabetic hypertensive nephropathy rule out other causes, would avoid biopsy with echogenic kidneys All renal related issues were discussed with the patient, patient does exhibit good understanding, lab results were also discussed with patient in simple Persian Prognosis: Guarded We'll continue to follow and make recommendation from renal standpoint Objective - Vital Signs Vital signs: Vital Signs - 12hr 09/03/19 09/04/19 09/04/19 23:47 00:15 05:40 Temperature 98.8 F Pulse Rate 100 H 100 H 96 H Respiratory 22 Rate Blood Pressure 166/96 166/96 176/102 O2 Sat by Pulse 95 Oximetry 09/04/19 09/04/19 09/04/19 05:49 06:32 10:18 Temperature 98.0 F 98.7 F Pulse Rate 96 H 105 H Respiratory 18 22 Rate Blood Pressure 166/94 151/84 O2 Sat by Pulse 96 Oximetry - Lab 09/03/19 05:50 09/04/19 14:48 Most recent lab results Calcium 8.4 mg/dL (8.4-10.2) 09/03/19 05:50 Phosphorus 4.50 mg/dL (2.5-4.5) 09/02/19 19:05 Urine Creatinine 52.8 mg/dL (0.1-20.0) H 09/02/19 20:50 Urine Sodium 72 mmol/L 09/02/19 20:50 Urine Total Protein 359 mg/dL (5-11.8) H 09/02/19 20:50 Medications & Allergies - Medications Allergies/Adverse Reactions: Allergies No Known Allergies Allergy (Verified 03/04/19 15:38) Home Medications: Home Medications Medication Instructions Recorded Confirmed Last Taken Type amLODIPine [Norvasc] 10 mg PO DAILY 09/03/19 09/03/19 Unknown History Active Medications: Generic Name Dose Route Start Last Admin Trade Name Freq PRN Reason Stop Dose Admin Acetaminophen 650 mg 09/02/19 22:12 Tylenol PO Q4H PRN Pain MILD(1-3)/Fever >100.5/FERREIRA Dextrose 50 ml 09/02/19 22:12 D50w (25gm) Syringe IV Q30MIN PRN Hypoglycemia Protocol Heparin Sodium (Porcine) 5,000 unit 09/03/19 14:00 09/04/19 05:44 Heparin SUB-Q 5,000 unit Q8HR DURAN Administration Hydralazine HCl 10 mg 09/02/19 22:21 09/04/19 00:15 Apresoline IV 10 mg Q4H PRN Administration Blood Pressure Hydralazine HCl 25 mg 09/03/19 12:00 09/04/19 05:40 Apresoline PO 25 mg Q8H DURAN Administration Sodium Chloride 1,000 mls @ 75 mls/hr 09/02/19 22:15 09/03/19 06:48 Nacl 0.9% 1000 Ml IV 10 mls/hr DIRECT DURAN Administration Clindamycin HCl 600 mg in 50 mls @ 100 mls/hr 09/03/19 06:00 09/04/19 05:38 Cleocin 600 Mg/50 Ml IV 100 mls/hr Q8HR [facility] Administration Protocol Insulin Glargine 16 units 09/03/19 22:00 09/03/19 21:26 Lantus SUB-Q 16 units QHS DURAN Administration Insulin Human Lispro 0 unit 09/03/19 07:30 09/04/19 08:21 Humalog SUB-Q 8 unit ACHS DURAN Administration Protocol Magnesium Hydroxide 30 ml 09/02/19 22:12 Milk Of Magnesia PO Q4H PRN Constipation Morphine Sulfate 2 mg 09/02/19 22:12 09/03/19 14:46 Morphine IV 2 mg Q4H PRN Administration Pain, Moderate (4-6) Nifedipine 30 mg 09/03/19 11:00 09/04/19 10:14 Procardia Xl PO 30 mg QDAY DURAN Administration Ondansetron HCl 4 mg 09/02/19 22:12 Zofran IV Q8H PRN Nausea And Vomiting Sodium Bicarbonate 1,300 mg 09/02/19 22:00 09/04/19 10:14 Sodium Bicarbonate PO 1,300 mg BID DURAN Administration Sodium Chloride 10 ml 09/03/19 10:00 09/04/19 10:21 Sodium Chloride Flush Syringe 10 Ml IV 10 ml BID DURAN Administration Sodium Chloride 10 ml 09/02/19 22:12 Sodium Chloride Flush Syringe 10 Ml IV PRN PRN LINE FLUSH
[2019-09-04] MEDS ORDERED: NIFEdipine XL 30 MG TAB PO SCH (11:37)
[2019-09-04] MEDS: NIFEdipine XL 60 MG TAB PO SCH (14:28)
--- NOTE | 2019-09-04 15:27 | Progress Note ---
Assessment and Plan Assessment and plan: Patient is a 38-year-old male with known history of hypertension and diabetes mellitus presenting to the emergency room today complaining of bilateral lower extremity pain which has been ongoing for the past few days. He denies any fall and denies any trauma to the lower extremities. Pain is said to be more in the knees and he is also has some numbness on his feet. He admits that he has not been quite compliant with his blood pressure medications as his medications causes feet swelling. Blood pressure was quite elevated upon arrival in the emergency room he was given some IV hydralazine with significant improvement in his blood pressure. Patient has also had a right foot big toe wound which has been ongoing for several weeks but he has been nursing at home by himself. He denies any injury but indicates that he probably had a callus that got peeled off and developed into an infection. Wound has had some occasional drainage. Upon evaluation in the emergency room patient was found to have elevated BUN and creatinine was also found to be hyperglycemic. End Polisher on-call has been notified by the ER physician. * Unfortunately renal function continues to worsen with elevated creatinine level likely diabetic nephropathy ongoing. * Will proceed with wound surgeon consult and also infectious disease consult as patient may have underlining osteomyelitis by clinical. Will defer to ID if an MRI should be obtained. * Still awaiting lab of 09/04/2019 3:27 PM. (1) Bilateral leg pain Current Visit: Yes Status: Acute Plan to address problem: Etiology is unclear, this may be secondary to peripheral neuropathy. However patient has been placed on analgesic medication. (2) Acute renal failure possible ckd Current Visit: Yes Status: Acute Qualifiers: Acute renal failure type: unspecified Qualified Code(s): N17.9 - Acute kidney failure, unspecified Plan to address problem: We will monitor BUN and creatinine. Consult has been placed to the aircraft layout worker for further evaluation and recommendation. (3) Hypertensive urgency Current Visit: Yes Status: Acute Plan to address problem: Secondary to noncompliance with medication. Patient has been placed on IV hydralazine as needed. Will monitor blood pressure closely. (4) Wound of right foot Current Visit: Yes Status: Acute Plan to address problem: Patient placed on empiric IV antibiotics. xray of the foot not showing any fracture. Patient may need MRI of the right foot to rule out osteomyelitis. Consult will also be placed to wound care team for evaluation and recomm endation. Advised patient of the need for podiatry evaluation outpatient will obtain wound care doctor (5) metabolic acidosis Anticipate resolution with fluids (6) hyponatremia Anticipate resolution with fluids (7) mild Hyperkalemia Current Visit: Yes Status: Acute Renal prognosis is guarded History Interval history: Patient seen and examined this morning appears lethargic but reports improvement still with pain bilateral lower extremity. Mild improvement since yesterday Hospitalist Physical - Physical exam Narrative exam: VITAL SIGNS: Reviewed. GENERAL: The patient appears normally developed, cachetic. Vital signs as documented. HEAD: No signs of head trauma. EYES: Pupils are equal. Extraocular motions intact. EARS: Hearing grossly intact. MOUTH: Oropharynx is normal. NECK: No adenopathy, no JVD. CHEST: Chest with clear breath sounds bilaterally. No wheezes, rales, or rhonchi. CARDIAC: Regular rate and rhythm. S1 and S2, without murmurs, gallops, or rubs. VASCULAR: No Edema. Peripheral pulses normal and equal in all extremities. ABDOMEN: Soft, non tender and non distended. No rebound or guarding, and no masses palpated. Bowel Sounds normal. MUSCULOSKELETAL: Good range of motion of all major joints. Extremities without clubbing, cyanosis or edema. Darkened and swollen right great toe, no drainage noted, tender to touch NEUROLOGIC EXAM: Alert and oriented x 3 No focal sensory or strength deficits. Speech normal. Follows commands. PSYCHIATRIC: Mood normal. SKIN: detail exam as documented in skin assessment, excoriation changes noted appears to have a puncture underneath the plantar surface. Of the hallux. - Constitutional Vitals: Temp Pulse Resp BP Pulse Ox 98.3 F 114 H 22 134/73 97 09/04/19 11:14 09/04/19 11:14 09/04/19 11:14 09/04/19 11:14 09/04/19 11:14 General appearance: Present: no acute distress, well-nourished Results - Labs CBC & Chem 7: 09/03/19 05:50 09/03/19 05:50 Labs: Laboratory Last Values WBC 9.0 K/mm3 (4.5-11.0) 09/03/19 05:50 RBC 3.95 M/mm3 (3.65-5.03) 09/03/19 05:50 Hgb 11.4 gm/dl (11.8-15.2) L 09/03/19 05:50 Hct 35.1 % (35.5-45.6) L 09/03/19 05:50 MCV 89 fl (84-94) 09/03/19 05:50 MCH 29 pg (28-32) 09/03/19 05:50 MCHC 32 % (32-34) 09/03/19 05:50 RDW 15.2 % (13.2-15.2) 09/03/19 05:50 Plt Count 334 K/mm3 (140-440) 09/03/19 05:50 Lymph % (Auto) 19.6 % (13.4-35.0) 09/03/19 05:50 Whitfield % (Auto) 4.9 % (0.0-7.3) 09/03/19 05:50 Eos % (Auto) 2.3 % (0.0-4.3) 09/03/19 05:50 Baso % (Auto) 1.0 % (0.0-1.8) 09/03/19 05:50 Lymph # 1.8 K/mm3 (1.2-5.4) 09/03/19 05:50 Whitfield # 0.4 K/mm3 (0.0-0.8) 09/03/19 05:50 Eos # 0.2 K/mm3 (0.0-0.4) 09/03/19 05:50 Baso # 0.1 K/mm3 (0.0-0.1) 09/03/19 05:50 Seg Neutrophils % 72.2 % (40.0-70.0) H 09/03/19 05:50 Seg Neutrophils # 6.5 K/mm3 (1.8-7.7) 09/03/19 05:50 PT 12.6 Sec. (12.2-14.9) 09/03/19 05:50 INR 0.93 (0.87-1.13) 09/03/19 05:50 APTT 29.3 Sec. (24.2-36.6) 09/03/19 05:50 Sodium 133 mmol/L (137-145) L D 09/03/19 05:50 Potassium 5.1 mmol/L (3.6-5.0) H 09/03/19 05:50 Chloride 103.9 mmol/L (98-107) 09/03/19 05:50 Carbon Dioxide 15 mmol/L (22-30) L 09/03/19 05:50 Anion Gap 19 mmol/L 09/03/19 05:50 BUN 67 mg/dL (9-20) H 09/03/19 05:50 Creatinine 4.7 mg/dL (0.8-1.5) H 09/03/19 05:50 Estimated GFR 17 ml/min 09/03/19 05:50 BUN/Creatinine Ratio 14 % 09/03/19 05:50 Glucose 448 mg/dL (75-100) H 09/03/19 05:50 POC Glucose 301 (70-105) H 09/04/19 11:24 Hemoglobin A1c 9.6 % (4-6) H 09/02/19 22:44 Osmolality 315 Mosm/kg 09/02/19 19:05 Uric Acid 5.1 mg/dL (3.5-7.6) 09/02/19 19:05 Calcium 8.4 mg/dL (8.4-10.2) 09/03/19 05:50 Phosphorus 4.50 mg/dL (2.5-4.5) 09/02/19 19:05 Total Bilirubin 0.30 mg/dL (0.1-1.2) 09/02/19 16:11 AST 24 units/L (5-40) 09/02/19 16:11 ALT 31 units/L (7-56) 09/02/19 16:11 Alkaline Phosphatase 94 units/L (35-129) 09/02/19 16:11 Total Protein 6.8 g/dL (6.3-8.2) 09/02/19 16:11 Albumin 3.7 g/dL (3.9-5) L 09/02/19 16:11 Albumin/Globulin Ratio 1.2 % 09/02/19 16:11 PTH Intact 158.3 pg/mL (15-65) H 09/02/19 19:05 Urine Color Straw (Yellow) 09/02/19 20:50 Urine Turbidity Clear (Clear) 09/02/19 20:50 Urine pH 5.0 (5.0-7.0) 09/02/19 20:50 Ur Specific Cable 1.010 (1.003-1.030) 09/02/19 20:50 Urine Protein >500 mg/dL (Negative) 09/02/19 20:50 Urine Glucose (UA) >=500 mg/dL (Negative) 09/02/19 20:50 Urine Ketones Neg mg/dL (Negative) 09/02/19 20:50 Urine Blood Sm (Negative) 09/02/19 20:50 Urine Nitrite Neg (Negative) 09/02/19 20:50 Urine Bilirubin Neg (Negative) 09/02/19 20:50 Urine Urobilinogen < 2.0 mg/dL (<2.0) 09/02/19 20:50 Ur Leukocyte Esterase Neg (Negative) 09/02/19 20:50 Urine WBC (Auto) 3.0 /HPF (0.0-6.0) 09/02/19 20:50 Urine RBC (Auto) 2.0 /HPF (0.0-6.0) 09/02/19 20:50 Urine Eosinophils None seen (None Seen) 09/02/19 20:50 Urine Creatinine 52.8 mg/dL (0.1-20.0) H 09/02/19 20:50 Urine Sodium 72 mmol/L 09/02/19 20:50 Urine Total Protein 359 mg/dL (5-11.8) H 09/02/19 20:50 Hepatitis A IgM Ab Non-reactive (NonReactive) 09/02/19 19:05 Hep Bs Antigen Non-reactive (Negative) 09/02/19 19:05 Hep B Core IgM Ab Non-reactive (NonReactive) 09/02/19 19:05 Hepatitis C Antibody Non-reactive (NonReactive) 09/02/19 19:05 Active Medications - Current Medications Current Medications: Generic Name Dose Route Start Last Admin Trade Name Freq PRN Reason Stop Dose Admin Acetaminophen 650 mg 09/02/19 22:12 Tylenol PO Q4H PRN Pain MILD(1-3)/Fever >100.5/FERREIRA Dextrose 50 ml 09/02/19 22:12 D50w (25gm) Syringe IV Q30MIN PRN Hypoglycemia Protocol Heparin Sodium (Porcine) 5,000 unit 09/03/19 14:00 09/04/19 14:28 Heparin SUB-Q 5,000 unit Q8HR DURAN Administration Hydralazine HCl 10 mg 09/02/19 22:21 09/04/19 00:15 Apresoline IV 10 mg Q4H PRN Administration Blood Pressure Hydralazine HCl 50 mg 09/04/19 11:37 09/04/19 14:27 Apresoline PO 50 mg Q8H DURAN Administration Sodium Chloride 1,000 mls @ 75 mls/hr 09/02/19 22:15 09/03/19 06:48 Nacl 0.9% 1000 Ml IV 10 mls/hr DIRECT DURAN Administration Clindamycin HCl 600 mg in 50 mls @ 100 mls/hr 09/03/19 06:00 09/04/19 14:26 Cleocin 600 Mg/50 Ml IV 100 mls/hr Q8HR DURAN Administration Protocol Insulin Glargine 20 units 09/04/19 22:00 Lantus SUB-Q QHS DURAN Insulin Human Lispro 0 unit 09/03/19 07:30 09/04/19 12:50 Humalog SUB-Q 8 unit ACHS DURAN Administration Protocol Magnesium Hydroxide 30 ml 09/02/19 22:12 Milk Of Magnesia PO Q4H PRN Constipation Morphine Sulfate 2 mg 09/02/19 22:12 09/03/19 14:46 Morphine IV 2 mg Q4H PRN Administration Pain, Moderate (4-6) Nifedipine 60 mg 09/04/19 12:00 09/04/19 14:28 Procardia Xl PO 60 mg QDAY DURAN Administration Ondansetron HCl 4 mg 09/02/19 22:12 Zofran IV Q8H PRN Nausea And Vomiting Sodium Bicarbonate 1,300 mg 09/02/19 22:00 09/04/19 10:14 Sodium Bicarbonate PO 1,300 mg BID DURAN Administration Sodium Chloride 10 ml 09/03/19 10:00 09/04/19 10:21 Sodium Chloride Flush Syringe 10 Ml IV 10 ml BID DURAN Administration Sodium Chloride 10 ml 09/02/19 22:12 Sodium Chloride Flush Syringe 10 Ml IV PRN PRN LINE FLUSH
[2019-09-04 16:20] LABS: Calcium 9.2 mg/dL (8.4-10.2)
[2019-09-04] MEDS: SODIUM CHLORIDE 0.9% 1000 ML 1,000 ML IV SCH (17:48)
[2019-09-04] MEDS: INSULIN GLARGINE 100 UNITS/ML SUB-Q SCH (22:40)
[2019-09-05] MEDS: hydrALAZINE 25 MG TAB PO SCH ×3 (04:55→18:59)
[2019-09-05] MEDS: SODIUM CHLORIDE 0.9% 1000 ML 1,000 ML IV SCH (04:55)
[2019-09-05] MEDS: HEPARIN 5,000 UNIT/1 ML VIAL SUB-Q SCH ×3 (05:00→22:17)
[2019-09-05] MEDS: CLINDAMYCIN 600 MG/50 mL 600 MG/50 ML BAG IV SCH ×3 (05:00→22:18)
[2019-09-05] MEDS: INSULIN LISPRO 100 UNIT/ML SUB-Q SCH ×4 (08:42→22:19)
[2019-09-05 08:58] LABS: Hematocrit 35.2 % (35.5-45.6); Hemoglobin 11.8 gm/dl (11.8-15.2); Mean Corpuscular HGB Conc 33 % (32-34); Mean Corpuscular Volume 87 fl (84-94); Platelet Count 339 K/mm3 (140-440); Red Blood Count 4.06 M/mm3 (3.65-5.03); Red Cell Distribution Width 14.9 % (13.2-15.2)
[2019-09-05] MEDS: SODIUM BICARBONATE 650 MG TAB PO SCH ×2 (09:44→22:17)
[2019-09-05] MEDS: NIFEdipine XL 60 MG TAB PO SCH (09:44)
--- NOTE | 2019-09-05 09:59 | Consultation ---
History of Present Illness - Reason for Consult Consult date: 09/05/19 - History of Present Illness 38 y M pMHx HTN and DM2 presented to hospital complaining of bilateral foot pain which he notes began a few days prior to admission. He also notes numbness in the feet, as well as pain in the bilateral knees as well. He is intermittently compliant with his medications. He has a wound on the right great toe which began several weeks prior to admission. He does not see wound care and has been tending to the wound on his own. He thinks it developed from a callus, and he notes that it occasionally has some drainage. Afebrile since admission with a normal white count. Currently on clindamycin. Imaging personally reviewed: Foot XR - no evidence of osteomyelitis Review of systems: Bold if positive; otherwise negative GENERAL: fever, chills, weight loss, fatigue, night sweats EYES: blurry vision, eye pain HENT: headache, hearing loss, sore throat, dysphagia, sinus pain CARDIO: chest pain, palpitations, orthopnea PULM: shortness of breath, wheezing, cough, sputum, hemoptysis GI: nausea, vomiting, diarrhea, abdominal pain, blood in stool : urinary frequency, urgency, dysuria, urethral discharge MSK: joint pain, back pain, swelling SKIN: rash, redness HEME: easy bruising, bleeding Past History Past Medical History: diabetes, hypertension, renal failure Past Surgical History: No surgical history Social history: no significant social history Family history: no significant family history Medications and Allergies Allergies Allergy/AdvReac Type Severity Reaction Status Date / Time No Known Allergies Allergy Verified 03/04/19 15:38 Home Medications Medication Instructions Recorded Confirmed Last Taken Type amLODIPine [Norvasc] 10 mg PO DAILY 09/03/19 09/03/19 Unknown History Active Meds: Active Medications Acetaminophen (Tylenol) 650 mg PO Q4H PRN PRN Reason: Pain MILD(1-3)/Fever >100.5/FERREIRA Dextrose (D50w (25gm) Syringe) 50 ml IV Q30MIN PRN; Protocol PRN Reason: Hypoglycemia Heparin Sodium (Porcine) (Heparin) 5,000 unit SUB-Q Q8HR DURAN Last Admin: 09/05/19 05:00 Dose: 5,000 unit Documented by: Hydralazine HCl (Apresoline) 10 mg IV Q4H PRN PRN Reason: Blood Pressure Last Admin: 09/04/19 00:15 Dose: 10 mg Documented by: Hydralazine HCl (Apresoline) 50 mg PO Q8H [facility] Last Admin: 09/05/19 04:55 Dose: 50 mg Documented by: Sodium Chloride (Nacl 0.9% 1000 Ml) 1,000 mls @ 75 mls/hr IV DIRECT [facility] Last Admin: 09/05/19 04:55 Dose: 10 mls/hr Documented by: Clindamycin HCl (Cleocin 600 Mg/50 Ml) 600 mg in 50 mls @ 100 mls/hr IV Q8HR [facility]; Protocol Last Admin: 09/05/19 05:00 Dose: 100 mls/hr Documented by: Insulin Glargine (Lantus) 20 units SUB-Q QHS [facility] Last Admin: 09/04/19 22:40 Dose: 20 units Documented by: Insulin Human Lispro (Humalog) 0 unit SUB-Q ACHS [facility]; Protocol Last Admin: 09/05/19 08:42 Dose: Not Given Documented by: Magnesium Hydroxide (Milk Of Magnesia) 30 ml PO Q4H PRN PRN Reason: Constipation Morphine Sulfate (Morphine) 2 mg IV Q4H PRN PRN Reason: Pain, Moderate (4-6) Last Admin: 09/03/19 14:46 Dose: 2 mg Documented by: Nifedipine (Procardia Xl) 60 mg PO QDAY [facility] Last Admin: 09/05/19 09:44 Dose: 60 mg Documented by: Ondansetron HCl (Zofran) 4 mg IV Q8H PRN PRN Reason: Nausea And Vomiting Sodium Bicarbonate (Sodium Bicarbonate) 1,300 mg PO BID [facility] Last Admin: 09/05/19 09:44 Dose: 1,300 mg Documented by: Sodium Chloride (Sodium Chloride Flush Syringe 10 Ml) 10 ml IV BID [facility] Last Admin: 09/04/19 22:41 Dose: 10 ml Documented by: Sodium Chloride (Sodium Chloride Flush Syringe 10 Ml) 10 ml IV PRN PRN PRN Reason: LINE FLUSH Physical Examination - Physical Exam Narrative exam: General Normal appearance, well developed, no acute distress Eyes - PERRLA, EOM intact ENT - Moist mucous membranes, no lymphadenopathy Neck - No noticeable or palpable swelling, redness or rash around throat or on face Lymph Nodes - No lymphadenopathy Cardiovascular - RRR no m/r/g, no JVD, no carotid bruits Lungs - Clear to auscultation, no use of accessory muscles, no crackles or wheezes. Skin - No rashes, skin warm and dry, no erythematous areas Abdomen - Normal bowel sounds, abdomen soft and nontender Extremities - No edema, cyanosis or clubbing. R great toe small plantar wound Musculoskeletal - 5/5 strength, normal range of motion, no swollen or erythematous joints. Neurological Alert and oriented x 3, CN 2-12 grossly intact. - Constitutional Vitals: Vital Signs Temp Pulse Resp BP Pulse Ox 98.3 F 102 H 20 143/90 99 09/05/19 04:45 09/05/19 04:55 09/05/19 04:45 09/05/19 04:55 09/05/19 04:45 Temperature -Last 24 Hours Temperature 98.3 F Temperature 97.3 F Temperature 98.6 F Temperature 98.6 F Temperature 98.3 F Results - Labs CBC & Chem 7: 09/05/19 08:36 09/05/19 08:36 Labs: Abnormal lab results 09/04/19 09/04/19 09/04/19 Range/Units 11:24 14:48 16:52 Hct (35.5-45.6) % Sodium 130 L (137-145) mmol/L Potassium 5.1 H (3.6-5.0) mmol/L Chloride (98-107) mmol/L Carbon Dioxide 15 L (22-30) mmol/L BUN 72 H (9-20) mg/dL Creatinine 5.2 H (0.8-1.5) mg/dL Glucose 395 H (75-100) mg/dL POC Glucose 301 H 329 H (70-105) Phosphorus 5.10 H (2.5-4.5) mg/dL 09/04/19 09/05/19 09/05/19 Range/Units 21:26 07:52 08:36 Hct 35.2 L (35.5-45.6) % Sodium (137-145) mmol/L Potassium (3.6-5.0) mmol/L Chloride (98-107) mmol/L Carbon Dioxide (22-30) mmol/L BUN (9-20) mg/dL Creatinine (0.8-1.5) mg/dL Glucose (75-100) mg/dL POC Glucose 306 H 122 H (70-105) Phosphorus (2.5-4.5) mg/dL 09/05/19 Range/Units 08:36 Hct (35.5-45.6) % Sodium (137-145) mmol/L Potassium (3.6-5.0) mmol/L Chloride 107.7 H (98-107) mmol/L Carbon Dioxide 16 L (22-30) mmol/L BUN 66 H (9-20) mg/dL Creatinine 4.8 H (0.8-1.5) mg/dL Glucose 177 H (75-100) mg/dL POC Glucose (70-105) Phosphorus (2.5-4.5) mg/dL Assessment and Plan Cultures None Assessment: 38 yo M PMHx HTN and DM2 admitted with bilateral foot and knee pain, found to have a diabetic foot wound. 1. DIabetic foot wound - ordered MRI, will follow up to determine the extent of the infection which will significantly change the route and duration of the antibiosis. Continue clindamycin for now, follow up surgical/wound care recommendations. 2.DM2 - tight glycemic control to promote best wound healing. 3. CKD - renally dose antibiotics as appropriate. Recs: - follow up MRI - follow up surgical recommendations - continue clindamycin for now while pending MRI results. Thank you for the consult, we will continue to follow. [facility] ([facility] M: [phone] O: [phone] F: [phone]
--- NOTE | 2019-09-05 11:43 | Progress Note ---
Assessment and Plan # FÉLIX on CKD: renal function stable/improved. Suspect CKD in setting of HTN, DM, NSAID use. Renal ultrasound with echogenic kidneys - no indication for renal replacement therapy at this time - avoid nephrotoxins - encourage po hydration, can monitor off IVF if able - renally dose meds - daily labs - follow up serologic testing # HTN: BP improved, ideally would like to be <130/80 but continue current regimen for now # Osteomyelitis of Toe: ID following, appreciate input # DM # Acidosis: on po bicarb, will follow # Proteinuria: likely in setting of DM, f/u serologic workup. Hold on PINA/ARB given FÉLIX # Secondary hyperparathyroidism/High Phos: PTH at goal for CKD. Consider P binders as outpatient Subjective Date of service: 09/05/19 Interval history: No acute events noted. Feeling well this AM. No dyspnea, no chest pain. Normal appetite. Objective - Exam Narrative Exam: General: No acute distress HEENT: NC/AT Neck: Supple Chest: Clear to auscultation anteriorly Heart: Regular rate and rhythm S1-S2 heard Abdomen: Soft nontender Extremity: No edema, normal pulses Psych: No evidence of any agitation and aggression noted Derm: intact skin - Vital Signs Vital signs: Vital Signs - 12hr 09/04/19 09/05/19 09/05/19 23:46 04:45 04:55 Temperature 97.3 F L 98.3 F Pulse Rate 99 H 102 H 102 H Respiratory 18 20 Rate Blood Pressure 148/81 143/90 143/90 O2 Sat by Pulse 98 99 Oximetry - Lab 09/05/19 08:36 09/05/19 08:36 Most recent lab results Calcium 9.0 mg/dL (8.4-10.2) 09/05/19 08:36 Phosphorus 5.10 mg/dL (2.5-4.5) H 09/04/19 14:48 Urine Creatinine 52.8 mg/dL (0.1-20.0) H 09/02/19 20:50 Urine Sodium 72 mmol/L 09/02/19 20:50 Urine Total Protein 359 mg/dL (5-11.8) H 09/02/19 20:50 Medications & Allergies - Medications Allergies/Adverse Reactions: Allergies No Known Allergies Allergy (Verified 03/04/19 15:38) Home Medications: Home Medications Medication Instructions Recorded Confirmed Last Taken Type amLODIPine [Norvasc] 10 mg PO DAILY 09/03/19 09/03/19 Unknown History Active Medications: Generic Name Dose Route Start Last Admin Trade Name Freq PRN Reason Stop Dose Admin Acetaminophen 650 mg 09/02/19 22:12 Tylenol PO Q4H PRN Pain MILD(1-3)/Fever >100.5/FERREIRA Dextrose 50 ml 09/02/19 22:12 D50w (25gm) Syringe IV Q30MIN PRN Hypoglycemia Protocol Heparin Sodium (Porcine) 5,000 unit 09/03/19 14:00 09/05/19 05:00 Heparin SUB-Q 5,000 unit Q8HR DURAN Administration Hydralazine HCl 10 mg 09/02/19 22:21 09/04/19 00:15 Apresoline IV 10 mg Q4H PRN Administration Blood Pressure Hydralazine HCl 50 mg 09/04/19 11:37 09/05/19 04:55 Apresoline PO 50 mg Q8H DURAN Administration Sodium Chloride 1,000 mls @ 75 mls/hr 09/02/19 22:15 09/05/19 04:55 Nacl 0.9% 1000 Ml IV 10 mls/hr DIRECT DURAN Administration Clindamycin HCl 600 mg in 50 mls @ 100 mls/hr 09/03/19 06:00 09/05/19 05:00 Cleocin 600 Mg/50 Ml IV 100 mls/hr Q8HR DURAN Administration Protocol Insulin Glargine 20 units 09/04/19 22:00 09/04/19 22:40 Lantus SUB-Q 20 units QHS DURAN Administration Insulin Human Lispro 0 unit 09/03/19 07:30 09/05/19 08:42 Humalog SUB-Q Not Given ACHS DURAN Protocol Magnesium Hydroxide 30 ml 09/02/19 22:12 Milk Of Magnesia PO Q4H PRN Constipation Morphine Sulfate 2 mg 09/02/19 22:12 09/03/19 14:46 Morphine IV 2 mg Q4H PRN Administration Pain, Moderate (4-6) Nifedipine 60 mg 09/04/19 12:00 09/05/19 09:44 Procardia Xl PO 60 mg QDAY DURAN Administration Ondansetron HCl 4 mg 09/02/19 22:12 Zofran IV Q8H PRN Nausea And Vomiting Sodium Bicarbonate 1,300 mg 09/02/19 22:00 09/05/19 09:44 Sodium Bicarbonate PO 1,300 mg BID DURAN Administration Sodium Chloride 10 ml 09/03/19 10:00 09/05/19 09:45 Sodium Chloride Flush Syringe 10 Ml IV Not Given BID DURAN Sodium Chloride 10 ml 09/02/19 22:12 Sodium Chloride Flush Syringe 10 Ml IV PRN PRN LINE FLUSH
--- NOTE | 2019-09-05 14:31 | Progress Note ---
Assessment and Plan Assessment and plan: Patient is a 38-year-old male with known history of hypertension and diabetes mellitus presenting to the emergency room today complaining of bilateral lower extremity pain which has been ongoing for the past few days. He denies any fall and denies any trauma to the lower extremities. Pain is said to be more in the knees and he is also has some numbness on his feet. He admits that he has not been quite compliant with his blood pressure medications as his medications causes feet swelling. Blood pressure was quite elevated upon arrival in the emergency room he was given some IV hydralazine with significant improvement in his blood pressure. Patient has also had a right foot big toe wound which has been ongoing for several weeks but he has been nursing at home by himself. He denies any injury but indicates that he probably had a callus that got peeled off and developed into an infection. Wound has had some occasional drainage. Upon evaluation in the emergency room patient was found to have elevated BUN and creatinine was also found to be hyperglycemic. [employer] Specialist on-call has been notified by the ER physician. * Unfortunately renal function continues to worsen with elevated creatinine level likely diabetic nephropathy ongoing. * Will proceed with wound surgeon consult and also infectious disease consult as patient may have underlining osteomyelitis by clinical. Will defer to ID if an MRI should be obtained. * Awaiting MRI to help direct therapy (1) Bilateral leg pain Current Visit: Yes Status: Acute Plan to address problem: Etiology is unclear, this may be secondary to peripheral neuropathy. However patient has been placed on analgesic medication. (2) Acute renal failure secondary ATN WITH UNDERLYING CKD III Current Visit: Yes Status: Acute Qualifiers: Acute renal failure type: unspecified Qualified Code(s): N17.9 - Acute k idney failure, unspecified Plan to address problem: We will monitor BUN and creatinine. Consult has been placed to the branch office manager for further evaluation and recommendation. (3) Hypertensive urgency Current Visit: Yes Status: Acute Plan to address problem: Secondary to noncompliance with medication. Patient has been placed on IV hydralazine as needed. Will monitor blood pressure closely. (4) Wound of right foot Current Visit: Yes Status: Acute Plan to address problem: Patient placed on empiric IV antibiotics. xray of the foot not showing any fracture. Patient may need MRI of the right foot to rule out osteomyelitis. Consult will also be placed to wound care team for evaluation and recommendation. Advised patient of the need for podiatry evaluation outpatient will obtain wound care doctor (5) metabolic acidosis Anticipate resolution with fluids (6) hyponatremia Anticipate resolution with fluids (7) Uncontrolled dm (8) mild Hyperkalemia Current Visit: Yes Status: Acute Renal prognosis is guarded History Interval history: Patient seen and examined this morning appears lethargic but reports improvement still with pain bilateral lower extremity. Hospitalist Physical - Physical exam Narrative exam: VITAL SIGNS: Reviewed. GENERAL: The patient appears normally developed, cachetic. Vital signs as documented. HEAD: No signs of head trauma. EYES: Pupils are equal. Extraocular motions intact. EARS: Hearing grossly intact. MOUTH: Oropharynx is normal. NECK: No adenopathy, no JVD. CHEST: Chest with clear breath sounds bilaterally. No wheezes, rales, or rhonchi. CARDIAC: Regular rate and rhythm. S1 and S2, without murmurs, gallops, or rubs. VASCULAR: No Edema. Peripheral pulses normal and equal in all extremities. ABDOMEN: Soft, non tender and non distended. No rebound or guarding, and no masses palpated. Bowel Sounds normal. MUSCULOSKELETAL: Good range of motion of all major joints. Extremities without clubbing, cyanosis or edema. Darkened and swollen right great toe, no drainage noted, tender to touch NEUROLOGIC EXAM: Alert and oriented x 3 No focal sensory or strength deficits. Speech normal. Follows commands. PSYCHIATRIC: Mood normal. SKIN: detail exam as documented in skin assessment, excoriation changes noted appears to have a puncture underneath the plantar surface. Of the hallux. - Constitutional Vitals: Temp Pulse Resp BP Pulse Ox 98.5 F 107 H 20 167/103 95 09/05/19 11:41 09/05/19 12:27 09/05/19 11:41 09/05/19 12:27 09/05/19 11:41 General appearance: Present: no acute distress, well-nourished Results - Labs CBC & Chem 7: 09/05/19 08:36 09/05/19 08:36 Labs: Laboratory Last Values WBC 8.4 K/mm3 (4.5-11.0) 09/05/19 08:36 RBC 4.06 M/mm3 (3.65-5.03) 09/05/19 08:36 Hgb 11.8 gm/dl (11.8-15.2) 09/05/19 08:36 Hct 35.2 % (35.5-45.6) L 09/05/19 08:36 MCV 87 fl (84-94) 09/05/19 08:36 MCH 29 pg (28-32) 09/05/19 08:36 MCHC 33 % (32-34) 09/05/19 08:36 RDW 14.9 % (13.2-15.2) 09/05/19 08:36 Plt Count 339 K/mm3 (140-440) 09/05/19 08:36 Lymph % (Auto) 19.6 % (13.4-35.0) 09/03/19 05:50 Nelson % (Auto) 4.9 % (0.0-7.3) 09/03/19 05:50 Eos % (Auto) 2.3 % (0.0-4.3) 09/03/19 05:50 Baso % (Auto) 1.0 % (0.0-1.8) 09/03/19 05:50 Lymph # 1.8 K/mm3 (1.2-5.4) 09/03/19 05:50 Nelson # 0.4 K/mm3 (0.0-0.8) 09/03/19 05:50 Eos # 0.2 K/mm3 (0.0-0.4) 09/03/19 05:50 Baso # 0.1 K/mm3 (0.0-0.1) 09/03/19 05:50 Seg Neutrophils % 72.2 % (40.0-70.0) H 09/03/19 05:50 Seg Neutrophils # 6.5 K/mm3 (1.8-7.7) 09/03/19 05:50 PT 12.6 Sec. (12.2-14.9) 09/03/19 05:50 INR 0.93 (0.87-1.13) 09/03/19 05:50 APTT 29.3 Sec. (24.2-36.6) 09/03/19 05:50 Sodium 139 mmol/L (137-145) D 09/05/19 08:36 Potassium 4.9 mmol/L (3.6-5.0) 09/05/19 08:36 Chloride 107.7 mmol/L (98-107) H 09/05/19 08:36 Carbon Dioxide 16 mmol/L (22-30) L 09/05/19 08:36 Anion Gap 20 mmol/L 09/05/19 08:36 BUN 66 mg/dL (9-20) H 09/05/19 08:36 Creatinine 4.8 mg/dL (0.8-1.5) H 09/05/19 08:36 Estimated GFR 16 ml/min 09/05/19 08:36 BUN/Creatinine Ratio 14 % 09/05/19 08:36 Glucose 177 mg/dL (75-100) H 09/05/19 08:36 POC Glucose 122 (70-105) H 09/05/19 07:52 Hemoglobin A1c 9.6 % (4-6) H 09/02/19 22:44 Osmolality 315 Mosm/kg 09/02/19 19:05 Uric Acid 5.1 mg/dL (3.5-7.6) 09/02/19 19:05 Calcium 9.0 mg/dL (8.4-10.2) 09/05/19 08:36 Phosphorus 5.10 mg/dL (2.5-4.5) H 09/04/19 14:48 Total Bilirubin 0.30 mg/dL (0.1-1.2) 09/02/19 16:11 AST 24 units/L (5-40) 09/02/19 16:11 ALT 31 units/L (7-56) 09/02/19 16:11 Alkaline Phosphatase 94 units/L (35-129) 09/02/19 16:11 Total Protein 6.8 g/dL (6.3-8.2) 09/02/19 16:11 Albumin 3.7 g/dL (3.9-5) L 09/02/19 16:11 Albumin/Globulin Ratio 1.2 % 09/02/19 16:11 PTH Intact 158.3 pg/mL (15-65) H 09/02/19 19:05 Urine Color Straw (Yellow) 09/02/19 20:50 Urine Turbidity Clear (Clear) 09/02/19 20:50 Urine pH 5.0 (5.0-7.0) 09/02/19 20:50 Ur Specific [place] 1.010 (1.003-1.030) 09/02/19 20:50 Urine Protein >500 mg/dL (Negative) 09/02/19 20:50 Urine Glucose (UA) >=500 mg/dL (Negative) 09/02/19 20:50 Urine Ketones Neg mg/dL (Negative) 09/02/19 20:50 Urine Blood Sm (Negative) 09/02/19 20:50 Urine Nitrite Neg (Negative) 09/02/19 20:50 Urine Bilirubin Neg (Negative) 09/02/19 20:50 Urine Urobilinogen < 2.0 mg/dL (<2.0) 09/02/19 20:50 Ur Leukocyte Esterase Neg (Negative) 09/02/19 20:50 Urine WBC (Auto) 3.0 /HPF (0.0-6.0) 09/02/19 20:50 Urine RBC (Auto) 2.0 /HPF (0.0-6.0) 09/02/19 20:50 Urine Eosinophils None seen (None Seen) 09/02/19 20:50 Urine Creatinine 52.8 mg/dL (0.1-20.0) H 09/02/19 20:50 Urine Sodium 72 mmol/L 09/02/19 20:50 Urine Total Protein 359 mg/dL (5-11.8) H 09/02/19 20:50 Hepatitis A IgM Ab Non-reactive (NonReactive) 09/02/19 19:05 Hep Bs Antigen Non-reactive (Negative) 09/02/19 19:05 Hep B Core IgM Ab Non-reactive (NonReactive) 09/02/19 19:05 Hepatitis C Antibody Non-reactive (NonReactive) 09/02/19 19:05 Active Medications - Current Medications Current Medications: Generic Name Dose Route Start Last Admin Trade Name Freq PRN Reason Stop Dose Admin Acetaminophen 650 mg 09/02/19 22:12 Tylenol PO Q4H PRN Pain MILD(1-3)/Fever >100.5/FERREIRA Dextrose 50 ml 09/02/19 22:12 D50w (25gm) Syringe IV Q30MIN PRN Hypoglycemia Protocol Heparin Sodium (Porcine) 5,000 unit 09/03/19 14:00 09/05/19 05:00 Heparin SUB-Q 5,000 unit Q8HR DURAN Administration Hydralazine HCl 10 mg 09/02/19 22:21 09/04/19 00:15 Apresoline IV 10 mg Q4H PRN Administration Blood Pressure Hydralazine HCl 50 mg 09/04/19 11:37 09/05/19 12:27 Apresoline PO 50 mg Q8H DURAN Administration Sodium Chloride 1,000 mls @ 75 mls/hr 09/02/19 22:15 09/05/19 04:55 Nacl 0.9% 1000 Ml IV 10 mls/hr DIRECT DRUAN Administration Clindamycin HCl 600 mg in 50 mls @ 100 mls/hr 09/03/19 06:00 09/05/19 05:00 Cleocin 600 Mg/50 Ml IV 100 mls/hr Q8HR DURAN Administration Protocol Insulin Glargine 20 units 09/04/19 22:00 09/04/19 22:40 Lantus SUB-Q 20 units QHS DURAN Administration Insulin Human Lispro 0 unit 09/03/19 07:30 09/05/19 12:22 Humalog SUB-Q 8 unit ACHS DURAN Administration Protocol Magnesium Hydroxide 30 ml 09/02/19 22:12 Milk Of Magnesia PO Q4H PRN Constipation Morphine Sulfate 2 mg 09/02/19 22:12 09/03/19 14:46 Morphine IV 2 mg Q4H PRN Administration Pain, Moderate (4-6) Nifedipine 60 mg 09/04/19 12:00 09/05/19 09:44 Procardia Xl PO 60 mg QDAY DURAN Administration Ondansetron HCl 4 mg 09/02/19 22:12 Zofran IV Q8H PRN Nausea And Vomiting Sodium Bicarbonate 1,300 mg 09/02/19 22:00 09/05/19 09:44 Sodium Bicarbonate PO 1,300 mg BID DURAN Administration Sodium Chloride 10 ml 09/03/19 10:00 09/05/19 09:45 Sodium Chloride Flush Syringe 10 Ml IV Not Given BID DURAN Sodium Chloride 10 ml 09/02/19 22:12 Sodium Chloride Flush Syringe 10 Ml IV PRN PRN LINE FLUSH
[2019-09-05] MEDS: MORPHINE 2 MG/1 ML INJ IV PRN ×2 (15:59→22:21)
--- NOTE | 2019-09-05 17:01 | Consultation ---
History of Present Illness Consult date: 09/05/19 - History of present illness History of present illness: 38 yo diabetic male with CKD and a month long h/o a right great toe ulcer. He is not aware of his last A1c. Past History Past Medical History: diabetes, hypertension, renal failure Past Surgical History: No surgical history Social history: no significant social history Family history: no significant family history Medications and Allergies Allergies Allergy/AdvReac Type Severity Reaction Status Date / Time No Known Allergies Allergy Verified 03/04/19 15:38 Home Medications Medication Instructions Recorded Confirmed Last Taken Type amLODIPine [Norvasc] 10 mg PO DAILY 09/03/19 09/03/19 Unknown History Active Meds: Active Medications Acetaminophen (Tylenol) 650 mg PO Q4H PRN PRN Reason: Pain MILD(1-3)/Fever >100.5/FERREIRA Dextrose (D50w (25gm) Syringe) 50 ml IV Q30MIN PRN; Protocol PRN Reason: Hypoglycemia Heparin Sodium (Porcine) (Heparin) 5,000 unit SUB-Q Q8HR [facility] Last Admin: 09/05/19 14:40 Dose: 5,000 unit Documented by: Hydralazine HCl (Apresoline) 10 mg IV Q4H PRN PRN Reason: Blood Pressure Last Admin: 09/04/19 00:15 Dose: 10 mg Documented by: Hydralazine HCl (Apresoline) 50 mg PO Q8H DURAN Last Admin: 09/05/19 12:27 Dose: 50 mg Documented by: Sodium Chloride (Nacl 0.9% 1000 Ml) 1,000 mls @ 75 mls/hr IV DIRECT DURAN Last Admin: 09/05/19 04:55 Dose: 10 mls/hr Documented by: Clindamycin HCl (Cleocin 600 Mg/50 Ml) 600 mg in 50 mls @ 100 mls/hr IV Q8HR [facility]; Protocol Last Admin: 09/05/19 14:39 Dose: 100 mls/hr Documented by: Insulin Glargine (Lantus) 20 units SUB-Q QHS DURAN Last Admin: 09/04/19 22:40 Dose: 20 units Documented by: Insulin Human Lispro (Humalog) 0 unit SUB-Q ACHS [facility]; Protocol Last Admin: 09/05/19 12:22 Dose: 8 unit Documented by: Magnesium Hydroxide (Milk Of Magnesia) 30 ml PO Q4H PRN PRN Reason: Constipation Morphine Sulfate (Morphine) 2 mg IV Q4H PRN PRN Reason: Pain, Moderate (4-6) Last Admin: 09/05/19 15:59 Dose: 2 mg Documented by: Nifedipine (Procardia Xl) 60 mg PO QDAY [facility] Last Admin: 09/05/19 09:44 Dose: 60 mg Documented by: Ondansetron HCl (Zofran) 4 mg IV Q8H PRN PRN Reason: Nausea And Vomiting Sodium Bicarbonate (Sodium Bicarbonate) 1,300 mg PO BID [facility] Last Admin: 09/05/19 09:44 Dose: 1,300 mg Documented by: Sodium Chloride (Sodium Chloride Flush Syringe 10 Ml) 10 ml IV BID [facility] Last Admin: 09/05/19 09:45 Dose: Not Given Documented by: Sodium Chloride (Sodium Chloride Flush Syringe 10 Ml) 10 ml IV PRN PRN PRN Reason: LINE FLUSH Review of Systems All systems: negative (none) Exam Vital Signs Temp Pulse Resp BP Pulse Ox 98.4 F 101 H 18 203/117 100 09/02/19 15:57 09/02/19 15:57 09/02/19 15:57 09/02/19 15:57 09/02/19 15:57 - General physical appearance Positive: well developed, well nourished, no distress - Eyes Positive: PERRL, normal occular movement - ENT Positive: normal pinna, normal nares, normal mucosa, no hearing loss, no congestion - Neck Positive: no masses, no bruits, trachea midline, no venous distension - Respiratory Positive: normal expansion, normal respiratory effort, clear to auscultation - Cardiovascular Rhythm: regular Heart Sounds: Present: S1 & S2. Absent: rub, click - Extremities Extremities: pulses intact, No edema, normal temperature, normal color - Breasts Breasts: deferred - Abdomen Abdomen: Present: soft, bowel sounds normal. Absent: tender, distended Hernia: none - Genitourinary Male Genitourinary: deferred - Integumentary other (The skin along the medial right great toe is hyperpigmented. There is a 1 cm ulcer on the plantar aspect of the right great toe at the level of the IP joint. There is no drainage or cellulitis associated with the ulcer. Right DP and PT pulses are 2+.) - Neurologic Neurologic: alert and oriented to time, place and person, motor strength and sensation are grossly intact - Musculoskeletal normal gait, normal posture - Psychiatric Psychiatric: appropriate mood/affect, intact judgment & insight Results - Labs 09/05/19 08:36 09/05/19 08:36 Abnormal lab results 09/04/19 09/04/19 09/05/19 Range/Units 16:52 21:26 07:52 Hct (35.5-45.6) % Chloride (98-107) mmol/L Carbon Dioxide (22-30) mmol/L BUN (9-20) mg/dL Creatinine (0.8-1.5) mg/dL Glucose (75-100) mg/dL POC Glucose 329 H 306 H 122 H (70-105) 09/05/19 09/05/19 Range/Units 08:36 08:36 Hct 35.2 L (35.5-45.6) % Chloride 107.7 H (98-107) mmol/L Carbon Dioxide 16 L (22-30) mmol/L BUN 66 H (9-20) mg/dL Creatinine 4.8 H (0.8-1.5) mg/dL Glucose 177 H (75-100) mg/dL POC Glucose (70-105) Diabetes panel 09/05/19 Range/Units 08:36 Sodium 139 D (137-145) mmol/L Potassium 4.9 (3.6-5.0) mmol/L Chloride 107.7 H (98-107) mmol/L Carbon Dioxide 16 L (22-30) mmol/L BUN 66 H (9-20) mg/dL Creatinine 4.8 H (0.8-1.5) mg/dL Glucose 177 H (75-100) mg/dL Calcium 9.0 (8.4-10.2) mg/dL Calcium panel 09/05/19 Range/Units 08:36 Calcium 9.0 (8.4-10.2) mg/dL Pituitary panel 09/05/19 Range/Units 08:36 Sodium 139 D (137-145) mmol/L Potassium 4.9 (3.6-5.0) mmol/L Chloride 107.7 H (98-107) mmol/L Carbon Dioxide 16 L (22-30) mmol/L BUN 66 H (9-20) mg/dL Creatinine 4.8 H (0.8-1.5) mg/dL Glucose 177 H (75-100) mg/dL Calcium 9.0 (8.4-10.2) mg/dL Adrenal panel 09/05/19 Range/Units 08:36 Sodium 139 D (137-145) mmol/L Potassium 4.9 (3.6-5.0) mmol/L Chloride 107.7 H (98-107) mmol/L Carbon Dioxide 16 L (22-30) mmol/L BUN 66 H (9-20) mg/dL Creatinine 4.8 H (0.8-1.5) mg/dL Glucose 177 H (75-100) mg/dL Calcium 9.0 (8.4-10.2) mg/dL - Imaging Additional studies: MRI of the right foot was just performed. Assessment and Plan - Patient Problems (1) Wound of right foot Current Visit: Yes Status: Acute Plan to address problem: 1) Check results of MRI 2) Arterial dopplers 3) Strict DM control 4) Off loading 5) Consult Wound Care nurse
--- NOTE | 2019-09-05 17:08 | Magnetic Resonance Report ---
MRI RIGHT FOOT WITHOUT CONTRAST INDICATION / CLINICAL INFORMATION: Right great toe infection. TECHNIQUE: Multiplanar, multisequence MR images were obtained. COMPARISON: None available. FINDINGS: BONES: There is mild reactive edema in the first distal phalanx without decreased T1 signal to sugges t osteomyelitis. No fracture. No osseous lesion. JOINTS: No significant arthritis. No significant joint effusion or synovitis. SUBCUTANEOUS SOFT TISSUES: There is mild cellulitis in the plantar aspect of the great toe without fo norman fluid collection. MUSCLES: No significant abnormality. FLEXOR TENDONS: No significant abnormality. EXTENSOR TENDONS: No significant abnormality. LIGAMENTS: No significant abnormality. ADDITIONAL FINDINGS: None. IMPRESSION: 1. Mild cellulitis in the plantar aspect of the great toe without findings to suggest osteomyelitis. Signer Name: Loy Fitzpatrick MD Signed: 09/05/2019 5:04 PM Workstation Name: [id number]
[2019-09-05] MEDS: INSULIN GLARGINE 100 UNITS/ML SUB-Q SCH (22:16)
[2019-09-06] MEDS: hydrALAZINE 25 MG TAB PO SCH ×2 (03:52→13:01)
[2019-09-06] MEDS: SODIUM CHLORIDE 0.9% 1000 ML 1,000 ML IV SCH (03:53)
[2019-09-06] MEDS: CLINDAMYCIN 600 MG/50 mL 600 MG/50 ML BAG IV SCH ×2 (06:04→13:01)
[2019-09-06] MEDS: HEPARIN 5,000 UNIT/1 ML VIAL SUB-Q SCH ×2 (06:04→13:02)
[2019-09-06] MEDS: INSULIN LISPRO 100 UNIT/ML SUB-Q SCH ×2 (08:54→13:01)
--- NOTE | 2019-09-06 09:44 | Vascular Lab Report ---
DUPLEX DOPPLER LOWER EXTREMITY ARTERIAL, RIGHT INDICATION: right great toe ulcer/DM. TECHNIQUE: Arterial duplex examination of the right lower extremity performed using B-mode, color flow and spect ral Doppler assessment. FINDINGS: RIGHT: Minimal plaque is seen. Common Femoral Artery: PSV 130 cm/sec. Triphasic waveform. Proximal SFA: PSV 126 cm/sec. Triphasic waveform. Mid SFA: PSV 140 cm/sec. Triphasic waveform. Distal SFA: PSV 119 cm/sec. Triphasic waveform. Popliteal artery: PSV 110 cm/sec. Triphasic waveform. Posterior tibial artery: PSV 126 cm/sec. Biphasic waveform. Dorsalis Pedis Artery: PSV 104 cm/sec. Biphasic waveform. IMPRESSION: 1. No significant right lower extremity peripheral artery disease. * Doppler Waveform: * Triphasic is normal. * Biphasic is abnormal if clear transition from triphasic signal along vascular tree. * Monophasic is abnormal. Signer Name: Taurus Shah MD Signed: 09/06/2019 9:39 AM Workstation Name: [id number]
[2019-09-06] MEDS: SODIUM BICARBONATE 650 MG TAB PO SCH (09:50)
[2019-09-06] MEDS: NIFEdipine XL 60 MG TAB PO SCH (09:51)
[2019-09-06 13:30] VITALS: BP 167/98
--- NOTE | 2019-09-06 14:11 | Discharge Summary ---
Providers - Providers Date of Admission: 09/02/19 21:39 Date of discharge: 09/06/19 Attending physician: ADELA IVAN 09/02/19 18:57 Consult to Physician [CONS] Routine Comment: Dr. Hubbard spoke with Dr. Perez @ 0730 Consulting Provider: CHRISTINA PEREZ Physician Instructions: Reason For Exam: Renal failure 09/02/19 22:30 Consult to Wound/ET Nurse [CONS] Routine Reason For Exam: wound eval ON RIGHT BIG TOE 09/04/19 11:36 Consult to Physician [CONS] Routine Comment: Consulting Provider: IVÁN LEBRON Physician Instructions: Reason For Exam: PRESUMED OSTEOMYLITIS 09/04/19 11:38 Consult to Physician [CONS] Routine Comment: Consulting Provider: JAMAICA FORBES Physician Instructions: Reason For Exam: CHRONIC NON HEALING WOUND TOE Primary care physician: WEB SITE MANAGER Hospitalization Condition: Stable Hospital course: Patient is a 38-year-old man with a history of IDDM and hypertension who presented to [facility] ED with right leg pains. He was found to have DM right foot ulcer with cellulitis and worked up for Osteomyelitis which was ruled out. Also, He admits to being noncompliant with blood pressure medications. He was also found to have severe Renal dysfunction with Creatinine of 4.8; in the emergency room he was given IV hydralazine with significant improvement in his blood pressure. * MRI right foot without contrast: Mild cellulitis in the plantar aspect of the great toe without findings to suggest osteomyelitis * Right Arterial Duplex: No significant Right lower extermity PAD Discharge Diagnoses: Right big toe cellulitis: 2 weeks of Clindamycin per ID, Day 12/05 ARF/CKD 4, ATN and vasomotor nephropathy, poa Hypertensive urgency Metabolic acidosis Hyponatremia Uncontrolled IDDM type 1, with hyperglycemia Hyperkalemia, mild Noncompliance: counseling done Disposition: DC- TO HOME OR SELFCARE Time spent for discharge: 36 minutes Core Measure Documentation - Palliative Care Palliative Care/ Comfort Measures: Not Applicable - Core Measures Any of the following diagnoses?: none - VTE Discharge Requirements Deep Vein Thrombosis/Pulmonary Embolism Present on Admission: No Has pt received <5 days of overlap therapy or INR<2.0: No Anticoagulant overlap therapy prescribed at discharge: No Contraindication No Overlap Therapy order at DC: Not Indicated Exam - Physical Exam Narrative exam: Gen: WDWN, NAD, Awake, Alert, Orientated x 3 HEENT: NCAT, EOMI, PERRL, OP Clear Neck: supple, no adenopathy, no thyromegaly, no JVD CVS/Heart: RRR, normal S1S2, pulses present bilaterally Chest/Lungs: CTA B, Symmetrical chest expansion, good air entry bilaterally GI/Abdomen: soft, NTND, good bowel sounds, no guarding or rebound /Bladder: no suprapubic tenderness, no CVA or paraspinal tenderness Extermity/Skin: right big toe ulcer, mild erythema around MSK: FROM x 4 Neuro: CN 2-12 grossly intact, no new focal deficits Psych: calm - Constitutional Vitals: Temp Pulse Resp BP Pulse Ox 98.2 F 108 H 19 167/98 100 09/06/19 11:32 09/06/19 11:32 09/06/19 11:32 09/06/19 11:32 09/06/19 11:32 Plan Activity: other (no strenous activity until cleared by Dr. Forbes) Diet: low salt, diabetic Special Instructions: record daily BP diary, record blood sugar diary Additional Instructions: Watch for diarrhea with the Antibiotic Clindamycin, up to 4 weeks after use. Notify Dr. Forbes or Dr. Lebron if you have diarrhea while taking the Clindamycin. Follow up with: PRIMARY CARE, [Primary Care Provider] - 3-5 Days IVÁN LEBRON MD [Staff Physician] - 7 Days JAMAICA FORBES MD [Staff Physician] - 7 Days Prescriptions: Insulin Glargine [Lantus VIAL] 20 units SUB-Q QHS #1000 units amLODIPine 10 mg PO DAILY #30 tab hydrALAZINE [Apresoline TAB] 2 tab PO TID #180 tablet Clindamycin [Clindamycin CAP] 2 tab PO TID #60 capsule Lispro Insulin [HumaLOG] 1 dose SUB-Q ACHS PRN #1000 units PRN Reason: Hyperglycemia NIFEdipine XL [Procardia Xl] 60 mg PO QDAY #30 tablet Sodium Bicarbonate 1,300 mg PO BID #120 tablet
--- NOTE | 2019-09-06 14:14 | Progress Note ---
Assessment and Plan Cultures None Assessment: 38 yo M PMHx HTN and DM2 admitted with bilateral foot and knee pain, found to have a diabetic foot wound. 1. DIabetic foot wound - MRI without osteo, only cellulitis. 2.DM2 - tight glycemic control to promote best wound healing. 3. CKD - renally dose antibiotics as appropriate. Recs: - ok for discharge with clindamycin 600mg q8h PO to compelte 10 more days of therapy. Stop date: 09/16/2019 - Patient should follow up in my clinic within 2 weeks of discharge. Sent to hothouse worker. Thank you for the consult, we will continue to follow. [facility] ([facility]) M: [phone] O: [phone] F: [phone] Subjective Date of service: 09/06/19 Interval history: No new complaints. Afebrile, normal white count. Ready for discharge. Objective - Exam Narrative Exam: General Normal appearance, well developed, no acute distress Lymph Nodes - No lymphadenopathy Cardiovascular - RRR no m/r/g, no JVD, no carotid bruits Lungs - Clear to auscultation, no use of accessory muscles, no crackles or wheezes. Skin - No rashes, skin warm and dry, no erythematous areas Abdomen - Normal bowel sounds, abdomen soft and nontender Extremities - No edema, cyanosis or clubbing. R great toe small plantar wound. No tenderness Musculoskeletal - 5/5 strength, normal range of motion, no swollen or erythematous joints. Neurological Alert and oriented x 3, CN 2-12 grossly intact. - Constitutional Vitals: Vital Signs Temp Pulse Resp BP Pulse Ox 98.2 F 108 H 19 167/98 100 09/06/19 11:32 09/06/19 11:32 09/06/19 11:32 09/06/19 11:32 09/06/19 11:32 Temperature -Last 24 Hours Temperature 98.2 F Temperature 99.0 F Temperature 97.9 F Temperature 98.0 F - Labs CBC & Chem 7: 09/05/19 08:36 09/05/19 08:36 Labs: Abnormal lab results 09/05/19 09/05/19 09/05/19 Range/Units 11:52 17:55 21:29 POC Glucose 319 H 264 H 274 H (70-105) 09/06/19 09/06/19 Range/Units 07:49 11:43 POC Glucose 237 H 196 H (-105)
[2019-09-06 22:22] LABS: ANA Screen, IFA Negative (Negative)
[2019-09-09 14:31] LABS: Aldo/Plasma Renin Act Ratio 3.2 Ratio (0.9-28.9)
[2019-09-09 14:31] LABS: Aldo/Plasma Renin Act Ratio 1.8 Ratio (0.9-28.9)
== END 2019-09-06 15:41 | disposition home or self-care (01) | DRG 683 ==
LOC: ED 14:14 → 3A 21:39
PROVIDERS: ADMIT Internal Medicine Geriatric Medicine; ATTEND Internal Medicine
DX: N17.0 Acute kidney failure with tubular necrosis (principal); L03.115 Cellulitis of right lower limb; E87.2 Acidosis; E87.1 Hypo-osmolality and hyponatremia; L97.518 Non-pressure chronic ulcer of other part of right foot with other specified severity; N18.4 Chronic kidney disease, stage 4 (severe); N25.81 Secondary hyperparathyroidism of renal origin; E11.621 Type 2 diabetes mellitus with foot ulcer; E11.628 Type 2 diabetes mellitus with other skin complications; S91.309A Unspecified open wound, unspecified foot, initial encounter; E11.65 Type 2 diabetes mellitus with hyperglycemia; E87.5 Hyperkalemia; I16.0 Hypertensive urgency; E11.22 Type 2 diabetes mellitus with diabetic chronic kidney disease; I12.9 Hypertensive chronic kidney disease with stage 1 through stage 4 chronic kidney disease, or unspecified chronic kidney disease; Z79.899 Other long term (current) drug therapy; Z91.14 Patient's other noncompliance with medication regimen; Z71.89 Other specified counseling
CPT/HCPCS: 36415; 73721; 76770; 80048; 80053; 80074; 81001; 82088; 82570; 82962; 83036; 83930; 83970; 84100; 84156; 84300; 84550; 85025; 85027; 85610; 85730; 86038; 89050; 93970; 96374; 96376; G0378; J0360; J1644; J1815; J2270; J7030

== ENCOUNTER 2019-09-13 09:38 | Outpatient (CLI) | payer OTHER ==
[2019-09-13] MEDS ORDERED: LIDOCAINE (4%) 40 MG/ML TOPICAL SOLN 50 ML BOTTLE TP ONE (10:01)
== END 2019-09-13 09:39 | disposition home or self-care (01) ==
LOC: WOUND 09:38
PROVIDERS: ATTEND Surgery
DX: E11.621 Type 2 diabetes mellitus with foot ulcer (principal); L97.512 Non-pressure chronic ulcer of other part of right foot with fat layer exposed; L84 Corns and callosities; I10 Essential (primary) hypertension; N19 Unspecified kidney failure; Z79.4 Long term (current) use of insulin; Z87.891 Personal history of nicotine dependence
CPT/HCPCS: 11042; G0463; 99215

== ENCOUNTER 2019-09-20 09:44 | Outpatient (CLI) | payer OTHER ==
[2019-09-20] MEDS ORDERED: LIDOCAINE (4%) 40 MG/ML TOPICAL SOLN 50 ML BOTTLE TP ONE (10:00)
== END 2019-09-20 09:45 | disposition home or self-care (01) ==
LOC: WOUND 09:44
PROVIDERS: ATTEND Surgery
DX: E11.621 Type 2 diabetes mellitus with foot ulcer (principal); L97.512 Non-pressure chronic ulcer of other part of right foot with fat layer exposed; L84 Corns and callosities; I10 Essential (primary) hypertension; N18.9 Chronic kidney disease, unspecified; Z79.4 Long term (current) use of insulin; Z87.891 Personal history of nicotine dependence

== ENCOUNTER 2019-09-27 09:17 | Outpatient (CLI) | payer OTHER ==
[2019-09-27] MEDS ORDERED: LIDOCAINE (4%) 40 MG/ML TOPICAL SOLN 50 ML BOTTLE TP ONE (10:00)
== END 2019-09-27 09:18 | disposition home or self-care (01) ==
LOC: WOUND 09:17
PROVIDERS: ATTEND Surgery
DX: E11.621 Type 2 diabetes mellitus with foot ulcer (principal); L97.512 Non-pressure chronic ulcer of other part of right foot with fat layer exposed; L84 Corns and callosities; I10 Essential (primary) hypertension; N18.9 Chronic kidney disease, unspecified; Z79.4 Long term (current) use of insulin; Z87.891 Personal history of nicotine dependence

== ENCOUNTER 2019-10-04 09:26 | Outpatient (CLI) | payer OTHER ==
[2019-10-04] MEDS ORDERED: LIDOCAINE (4%) 40 MG/ML TOPICAL SOLN 50 ML BOTTLE TP ONE (10:00)
== END 2019-10-04 09:27 | disposition home or self-care (01) ==
LOC: WOUND 09:26
PROVIDERS: ATTEND Surgery
DX: E11.621 Type 2 diabetes mellitus with foot ulcer (principal); L97.512 Non-pressure chronic ulcer of other part of right foot with fat layer exposed; L84 Corns and callosities; I10 Essential (primary) hypertension; N18.9 Chronic kidney disease, unspecified; Z79.4 Long term (current) use of insulin; Z87.891 Personal history of nicotine dependence

== ENCOUNTER 2019-10-06 10:57 | Outpatient (CLI) | payer OTHER ==
[2019-10-12 06:29] LABS: HIV-1 Antibody Differentiation SEE SCANNED RESULT; HIV-2 Antibody Differentiation SEE SCANNED RESULT
== END 2019-10-06 10:58 | disposition home or self-care (01) ==
LOC: LAB 10:57
PROVIDERS: ATTEND Internal Medicine
DX: A64 Unspecified sexually transmitted disease (principal)
CPT/HCPCS: 36415; 86592; 86689; 87591

== ENCOUNTER 2020-06-04 16:11 | Outpatient (CLI) | payer OTHER ==
[2020-06-04 17:01] LABS: Albumin 4.6 g/dL (3.9-5); Calcium 9.9 mg/dL (8.4-10.2)
== END 2020-06-04 16:12 | disposition home or self-care (01) ==
LOC: LAB 16:11
PROVIDERS: ATTEND Specialist
DX: G61.0 Guillain-Barre syndrome (principal)
CPT/HCPCS: 36415; 80053